=== PATIENT | male | born 1930 | race Caucasian/White ===

== ENCOUNTER 2016-09-26 14:56 | Emergency (ER) | payer BC, OTHER ==
[~2016-09-26 14:56] MED LIST: ACET-1256 PO; AMIT10TA6 PO; BISA1SUP4 RE; CLC100 PO; CLR10 PO; CMD5 PO; CMD6 PO; DEXTSYP41 PO; ECRCR TOP; EFFSR150 PO; ERGO1CAP35 PO; FLM4 PO; FRS/40 PO; GEMF600T3 PO; MAGNSUS5 PO; NTRGSL4 SL; OYST1TAB PO; PRNJ PO; TAPE50TA5 PO; TRAM-10 PO
[2016-09-26 15:02] VITALS: TEMP 37.2; O2SAT 96
--- NOTE | 2016-09-26 15:15 | EMERGENCY ROOM VISIT NOTE ---
History Report prepared by Reyes: Malina Kennedy Under the Supervision of: Dr. José Hayes M.D. First contact with patient: 14:59 Chief Complaint: FOOD BOLUS Stated Complaint: FOOD BOLUS History of Present Illness The patient is a 86 year old male who presents to the Emergency Room with complaints of choking episode occurring 2 and a half hours prior to arrival. The patient arrived to the ED via EMS from [facility]. They report that he was eating lunch when he began to have a choking episode or an allergic reaction. He appeared to have a food bolus. At this time the patient reports no pain. No vomiting episodes were reported. This HPI is limited secondary to dementia. Source of History: patient, EMS Onset: 2 1/2 hours CREDIT CASHIER Position: throat Quality: other (food bolus) Timing: resolved Note: The patient reports no pain at this time, no vomiting. Patient did have choking episode. Review of Systems ROS in unobtainable secondary to dementia. Past Medical & Surgical Medical Problems: (1) Atrial Fibrillation (2) Dementia, Unspecified, Without Behavioral Disturbance (3) Diverticulosis Colon (W/O Ment Of Hemorrhage) (4) Hyperplasia Of Prostate Nos (5) Hypertension Nos (6) Osteoarthros Nos-Unspec Family History Unobtainable Social History Smoking Status: Never Smoker Alcohol Use: none Housing Status: assisted living Occupation Status: retired Current/Historical Medications Scheduled Acetaminophen (Tylenol), 500 MG PO Q6HR PRN Amitriptyline Hcl (Elavil), 10 MG PO HS Bisacodyl (Bisacodyl Laxative), 1 SUPP RE PRN Docusate Sodium (Colace *), 100 MG PO Q12HR PRN Ergocalciferol (Vitamin D Cap), 1 TAB PO WK Eucerin (Eucerin *), 1 APPLN TOP BID Furosemide (Lasix), 40 MG PO BID Gemfibrozil (Lopid), 600 MG PO BID Guaifenesin/Dextromethorphan (Robitussin-Dm Syrup), 5 ML PO Q4HR PRN Loratadine (Claritin), 10 MG PO DAILY Oyster Shell (Oyster Shell Calcium), 500 MG PO BID Tamsulosin Hcl (Flomax *), 0.4 MG PO QAM Tapentadol Hcl (Nucynta), 100 MG PO Q12 Tramadol (Ultram), 50 MG PO Q4HR PRN Venlafaxine Ext Rel (Effexor Extended Rel *), 150 MG PO BID Warfarin Sod (Coumadin), 5 MG PO Q2D Warfarin Sod (Coumadin), 6 MG PO Q2D Scheduled PRN Magnesium Hydroxide (Milk Of Magnesia), 30 ML PO PRN PRN for Constipation Nitroglycerin (Nitrostat), 0.4 MG SL PRN PRN for Chest Pain Prune Juice (Prune Juice ), 8 OZ PO for Constipation Allergies Coded Allergies: Gabapentin (Verified Allergy, Severe, SHORTNESS OF BREATH, 03/23/16) Zolpidem (Unverified Allergy, Mild, ALLERGY, 03/23/16) Codeine (Verified Adverse Reaction, Intermediate, ANXIETY ATTACKS, 03/23/16 ) Physical Exam Vital Signs Date Time Temp Pulse Resp B/P Pulse Ox O2 Delivery O2 Flow Rate FiO2 09/26/16 15:02 96 Room Air 09/26/16 15:02 37.2 78 20 126/76 98 Room Air Physical Exam GENERAL: Patient is in no acute distress. HEENT: No acute trauma, normocephalic atraumatic, mucous membranes moist, no nasal congestion, no scleral icterus. No posterior pharyngeal swelling or uvula edema. NECK: No stridor, no adenopathy, no meningismus, trachea is midline. LUNGS: Clear to auscultation bilaterally, no wheeze, no rhonchi, breath sounds equal. HEART: Without murmurs gallops or rubs, regular rate and rhythm. ABDOMEN: Soft, nontender, bowel sounds positive, no hernias, no peritonitis. EXTREMITIES: No cyanosis or edema, full range of motion of all the joints without pain or difficulty, no signs for acute trauma. NEUROLOGIC: Moving all extremities, awake, dementia noted. SKIN: No rash, no jaundice, no diaphoresis. Medical Decision & Procedures ER Provider Diagnostic Interpretation: X-ray results as stated below per interpretation by me and the radiologist: SINGLE VIEW CHEST CLINICAL HISTORY: Dyspnea. FINDINGS: An AP, portable, upright chest radiograph is compared to study dated 06/07/2008. Correlation is made with chest CT dated 01/29/2008. The examination is degraded by portable technique and patient rotation. The heart is enlarged and there is atherosclerotic calcification of the thoracic aorta. The pulmonary vasculature is noncongested. There is mild elevation of the right hemidiaphragm. No airspace consolidation, large pleural effusion, or pneumothorax is seen. The skeletal structures are osteopenic. The bony thorax is grossly intact. IMPRESSION: Cardiomegaly with no acute cardiopulmonary abnormality. Electronically signed by: José oSsa M.D. 09/26/2016 3:16 PM Dictated Date/Time: 09/26/2016 3:15 PM ECG Indication: other (food bolus/choking) Rate (beats per minute): 78 Rhythm: normal sinus Findings: nonspecific-ST abn, no acute ischemic change ED Course 1500: The patient was evaluated in room C6. A complete history and physical exam was performed. 1504: The patient drank a half a glass of water with no difficulty. 1557: I reevaluated the patient. 1559: Reevaluated the patient. Discussed results and discharge instructions: he verbalized understanding and agreement. The patient is ready for discharge. Medical Decision The patient is a 86 year old male who presents to the ED with complaints of food bolus. Differential diagnoses considered include food bolus, acute allergic reaction, choking episode, cardiac ischemia, pneumonia. The patient presents for what sounds like an esophageal food bolus which spontaneously passed. He had difficulty swallowing while eating. There was concern for possible allergic reaction as well. On exam, the patient has no complaints, he is watching television. There is no rash, he has no uvular or pharyngeal edema. He drank half a glass of water without difficulty. No regurgitation of the liquid. His chest x-ray shows clear lungs, there is no mediastinal widening or pneumonia. EKG shows a sinus rhythm, there is no acute ischemia. The patient is without complaints and doing well. I cannot really get much history from him as he has dementia. The history was obtained from other staff members. At this point, the patient appears stable for discharge. Impression Primary Impression: Difficulty swallowing Scribe Attestation The scribe's documentation has been prepared under my direction and personally reviewed by me in its entirety. I confirm that the note above accurately reflects all work, treatment, procedures, and medical decision making performed by me. Departure Information Dispostion Home / Self-Care Referrals [facility] (PCP) Forms HOME CARE DOCUMENTATION FORM, IMPORTANT VISIT INFORMATION Patient Instructions My [facility] Additional Instructions chest film and ECG today were ok patient can drink water without difficulty patient may have had an esophageal food bolus that passed spontaneously
--- NOTE | 2016-09-26 15:18 | DIAGNOSTIC IMAGING REPORT ---
SINGLE VIEW CHEST CLINICAL HISTORY: Dyspnea. FINDINGS: An AP, portable, upright chest radiograph is compared to study dated 06/07/2008. Correlation is made with chest CT dated 01/29/2008. The examination is degraded by portable technique and patient rotation. The heart is enlarged and there is atherosclerotic calcification of the thoracic aorta. The pulmonary vasculature is noncongested. There is mild elevation of the right hemidiaphragm. No airspace consolidation, large pleural effusion, or pneumothorax is seen. The skeletal structures are osteopenic. The bony thorax is grossly intact. IMPRESSION: Cardiomegaly with no acute cardiopulmonary abnormality. Electronically signed by: José Sosa M.D. 09/26/2016 3:16 PM Dictated Date/Time: 09/26/2016 3:15 PM
[2016-09-26] MEDS ORDERED: LSX20 PO (16:34)
[2016-09-26] MEDS ORDERED: CHOL200027 PO (16:34)
[2016-09-26] MEDS ORDERED: XRL15 PO (16:34)
[2016-09-26] MEDS ORDERED: POTA10CA28 PO (16:34)
[2016-09-26] MEDS ORDERED: FLUO40CA8 PO (16:34)
[2016-09-26] MEDS ORDERED: MOMLX PO (16:34)
[2016-09-26] MEDS ORDERED: FLM4 PO (16:34)
[2016-09-26 18:35] VITALS: BP 125/69; PULSE 88; O2SAT 100
== END 2016-09-26 18:39 | disposition home or self-care (01) ==
LOC: EDBD 14:56 → C.EDC 14:57
DX: R13.10 Dysphagia, unspecified (principal); I48.91 Unspecified atrial fibrillation; F03.90 Unspecified dementia, unspecified severity, without behavioral disturbance, psychotic disturbance, mood disturbance, and anxiety; I10 Essential (primary) hypertension; Z79.01 Long term (current) use of anticoagulants

== ENCOUNTER → 2016-12-19 | Outpatient (CLI) | payer BC, OTHER ==
[~2016-12-19] MED LIST changes: +CHOL1000 PO; +CHOL200027 PO; -CLC100 PO; -CLR10 PO; -CMD5 PO; -CMD6 PO; -DEXTSYP41 PO; -ECRCR TOP; -EFFSR150 PO; -ERGO1CAP35 PO; +FLUO40CA8 PO; -FRS/40 PO; +LSX20 PO; -MAGNSUS5 PO; +MOMLX PO; -OYST1TAB PO; +POTA10CA28 PO; +SRQ25 PO; +TAPE1TAB10 PO; -TRAM-10 PO; +XRL15 PO
[2016-12-19 08:32] LABS: BASO % 0.9 %; BASO ABS # 0.04 K/uL (0-0.2); COMPLETE YES; EOS % 7.1 %; HEMATOCRIT 31.5 % (42-52); IG% 0.5 %; LYMPH % 29.7 %; LYMPH ABS # 1.29 K/uL (1.2-3.4); MEAN CELL VOLUME 90.3 fL (80-100); MEAN CORPUSCULAR HEMOGLOBIN 30.7 pg (25-34); MEAN PLATELET VOLUME 9.7 fL (7.4-10.4); MONO % 16.8 %; PLATELET COUNT 246 K/uL (130-400); RED BLOOD COUNT 3.49 M/uL (4.7-6.1); WHITE BLOOD COUNT 4.34 K/uL (4.8-10.8)
[2016-12-19 08:43] LABS: BLOOD UREA NITROGEN 38 mg/dl (7-18); BUN/CREATININE RATIO 21.3 (10-20); CARBON DIOXIDE 24 mmol/L (21-32); CHLORIDE 107 mmol/L (98-107); GLUCOSE 133 mg/dl (70-99); POTASSIUM 3.9 mmol/L (3.5-5.1); SODIUM 140 mmol/L (136-145)
[2016-12-19 08:49] LABS: CALCIUM 10.1 mg/dl (8.5-10.1)
== END ==
LOC: C.LABCC 08:15
PROVIDERS: ATTEND Internal Medicine
DX: D64.9 Anemia, unspecified (principal); N18.9 Chronic kidney disease, unspecified; F03.90 Unspecified dementia, unspecified severity, without behavioral disturbance, psychotic disturbance, mood disturbance, and anxiety

== ENCOUNTER → 2017-02-16 | Outpatient (CLI) | payer BC, OTHER ==
[2017-02-16 10:30] LABS: ALT/SGPT 14 U/L (12-78); AST/SGOT 13 U/L (15-37); BLOOD UREA NITROGEN 43 mg/dl (7-18); BUN/CREATININE RATIO 23.9 (10-20); CALCIUM 9.3 mg/dl (8.5-10.1); CARBON DIOXIDE 28 mmol/L (21-32); CHLORIDE 105 mmol/L (98-107); GLUCOSE 134 mg/dl (70-99); POTASSIUM 4.4 mmol/L (3.5-5.1); SODIUM 141 mmol/L (136-145)
[2017-02-16 10:33] LABS: ALB/GLOB RATIO 0.9 (0.9-2); ALKALINE PHOSPHATASE 111 U/L (45-117); CHOLESTEROL 214 mg/dl (0-200); HDL CHOLESTEROL 43 mg/dl; LDL CHOLESTEROL CALCULATED 140 mg/dl; TRIGLYCERIDES 156 mg/dl (0-150); VERY LOW DENSITY LIPOPROT CALC 31 mg/dl
--- NOTE | 2017-02-20 11:26 | CODING QUERY MEDICAL NECESSITY ---
SUPPORTING DIAGNOSIS NEEDED A supporting diagnosis is required for the test/procedure performed on this patient in order for us to be reimbursed by the patient's insurance. Please provide a supporting diagnosis for the following test/procedure listed below next to the test name along with your signature. *If there is no additional diagnosis for this patient that would support the following test/procedure please document that below next to the test/procedure. Test(s)/Procedure(s) that require a supporting diagnosis: * VITAMIN D, 25- HYDROXY DIAGNOSIS: Provider Signature: Date: Thank you Nya [employer] Information Management Once completed, please kindly fax back to [phone] For questions please call [phone]
== END ==
LOC: C.LABCC 08:16
PROVIDERS: ATTEND Internal Medicine
DX: N18.2 Chronic kidney disease, stage 2 (mild) (principal); E78.5 Hyperlipidemia, unspecified; E55.9 Vitamin D deficiency, unspecified

== ENCOUNTER → 2017-05-16 | Outpatient (CLI) | payer BC, OTHER ==
[2017-05-16 08:33] LABS: URINE APPEARANCE CLEAR (CLEAR); URINE BILIRUBIN NEG (NEG); URINE COLOR YELLOW; URINE NITRITE NEG (NEG); URINE PH 5.5 (4.5-7.5); URINE SPECIFIC GRAVITY 1.017 (1.000-1.030); UROBILINOGEN NEG (NEG); ZZUR CULT IF INDIC CLEAN CATCH NO
[2017-05-16 08:35] LABS: MANUAL MICROSCOPIC REQUIRED? NO; REVIEW REQ? YES
== END ==
LOC: C.LABCC 10:22
PROVIDERS: ATTEND Internal Medicine
DX: R41.82 Altered mental status, unspecified (principal)

== ENCOUNTER 2017-05-19 11:43 | Inpatient (IN) | payer BC, OTHER ==
[~2017-05-19] VITALS: Ht 172.7 cm; Wt 74.0 kg
[~2017-05-19 11:43] MED LIST changes: -CHOL1000 PO; -SRQ25 PO; -TAPE1TAB10 PO
[2017-05-19] MEDS ORDERED: SODIUM CHLORIDE 0.9% 1000ML 1,000 ML IV STA (12:12)
[2017-05-19] MEDS ORDERED: TAPE1TAB10 PO (12:28)
[2017-05-19 12:40] LABS: BASO % 0.2 %; BASO ABS # 0.01 K/uL (0-0.2); COMPLETE YES; EOS % 1.5 %; HEMATOCRIT 31.5 % (42-52); IG% 0.3 %; LYMPH % 13.1 %; LYMPH ABS # 0.86 K/uL (1.2-3.4); MEAN CELL VOLUME 90.5 fL (80-100); MEAN CORPUSCULAR HEMOGLOBIN 31.3 pg (25-34); MEAN CORPUSCULAR HGB CONC 34.6 g/dl (32-36); MEAN PLATELET VOLUME 9.9 fL (7.4-10.4); NEUT % 75.9 %; PLATELET COUNT 292 K/uL (130-400); RED BLOOD COUNT 3.48 M/uL (4.7-6.1); WHITE BLOOD COUNT 6.56 K/uL (4.8-10.8)
[2017-05-19 12:44] LABS: INR 1.1 (0.9-1.1); PARTIAL THROMBOPLASTIN RATIO 1.2; PROTHROMBIN TIME (PATIENT) 12.3 SECONDS (9.0-12.0)
[2017-05-19 12:54] LABS: BUN/CREATININE RATIO 23.9 (10-20); CALCIUM 9.8 mg/dl (8.5-10.1); CREATININE 1.9 mg/dl (0.60-1.40); POTASSIUM 3.7 mmol/L (3.5-5.1)
--- NOTE | 2017-05-19 13:34 | DIAGNOSTIC IMAGING REPORT ---
HEAD WITHOUT CONTRAST (CT) CLINICAL HISTORY: 87 years-old Male presenting with EVALUATE FOR TRAUMA/INJURY. TECHNIQUE: Multidetector CT imaging of the head was performed without the use of intravenous contrast. IV contrast: None. A dose lowering technique was used consistent with the principles of ALARA (as low as reasonably achievable). COMPARISON: . CT DOSE (mGy.cm): The estimated cumulative dose is 982.[address] cervical spine. FINDINGS: Skid Man topogram: Unremarkable. Proportional ventricular and sulcal prominence, likely age-related parenchymal volume loss. Periventricular and subcortical white matter hypoattenuation, nonspecific but likely indicative of chronic small vessel ischemic change. No mass effect or midline shift. No hemorrhage or acute territorial infarct. No extra-axial fluid collection. Paranasal sinuses and mastoid air cells clear. Calvarium intact. IMPRESSION: 1. No acute intracranial pathology. Electronically signed by: Roman Rubio M.D. 05/19/2017 1:33 PM Dictated Date/Time: 05/19/2017 1:31 PM
--- NOTE | 2017-05-19 13:35 | DIAGNOSTIC IMAGING REPORT ---
CT OF THE CERVICAL SPINE CLINICAL HISTORY: Neck pain status post trauma COMPARISON STUDY: April 27, 2014 CT DOSE: 982.26 mGy.cm TECHNIQUE: CT scan of the cervical spine was performed from the skull base to the thoracic inlet. Images are reviewed in the axial, sagittal, and coronal planes. IV contrast was not administered for this examination. A dose lowering technique was utilized adhering to the principles of ALARA. FINDINGS: The visualized portions of the lung apices reveal no evidence of pneumothorax. The prevertebral soft tissues are normal. No fractures or subluxations are visualized. There are advanced multilevel degenerative changes. Mild anterolisthesis of C3 on C4 is felt to be arthritic. There is mild multilevel spinal stenosis. There is multilevel ankylosis. There is fusion of the posterior elements at the C3 through 5 levels. IMPRESSION: No evidence of acute fracture or traumatic subluxation. Electronically signed by: Axel Kang M.D. 05/19/2017 1:34 PM Dictated Date/Time: 05/19/2017 1:31 PM
--- NOTE | 2017-05-19 13:37 | DIAGNOSTIC IMAGING REPORT ---
CHEST ONE VIEW PORTABLE CLINICAL HISTORY: EVALUATE FOR TRAUMA/INJURY pain. Trauma. COMPARISON STUDY: 09/26/2016 FINDINGS: The bones soft tissues and hemidiaphragms are normal. The cardiomediastinal silhouette is normal. The lungs are clear. The pulmonary vasculature is normal. IMPRESSION: Negative chest. The above report was generated using voice recognition software. It may contain grammatical, syntax or spelling errors. Electronically signed by: Maximiliano Barcenas M.D. 05/19/2017 1:36 PM Dictated Date/Time: 05/19/2017 1:36 PM
--- NOTE | 2017-05-19 14:19 | DIAGNOSTIC IMAGING REPORT ---
LEFT PELVIS/UNILATERAL HIP 2-3VIEWS CLINICAL HISTORY: L hip pain . Fall. COMPARISON STUDY: None. FINDINGS: There is a left femoral neck fracture with the distal fragment demonstrates mild superior displacement. No dislocation of the left femoral head. The visualized pelvic bones are intact. No fracture or dislocation within the right hip. The bones are osteopenic. IMPRESSION: Left femoral neck fracture. Electronically signed by: Jenaro Hodge M.D. 05/19/2017 2:18 PM Dictated Date/Time: 05/19/2017 2:17 PM
[2017-05-19] MEDS ORDERED: BISACODYL 10 MG SUPP PR PRN (14:45)
[2017-05-19] MEDS ORDERED: ONDANSETRON INJ 2 MG/ML 2 ML VIAL IV PRN (14:45)
[2017-05-19] MEDS ORDERED: NALOXONE HCL 0.4 MG/1 ML VIAL/CARP IV PRN (14:45)
[2017-05-19] MEDS ORDERED: SOD PHOSPHATE/SOD BIPHOSPHATE ENEMA 132 ML BTL PR PRN (14:45)
[2017-05-19] MEDS ORDERED: POLYETHYLENE (MIRALAX) 17 GM PACK PO PRN (14:45)
[2017-05-19] MEDS ORDERED: MAGNESIUM HYDROXIDE SUSP 30 ML UDC PO PRN (14:45)
[2017-05-19] MEDS ORDERED: NITROGLYCERIN 0.4 MG SL PER TAB CHARGE SL PRN (14:45)
--- NOTE | 2017-05-19 15:09 | DIAGNOSTIC IMAGING REPORT ---
LEFT TIBIA/FIBULA 2 VIEWS ROUTINE, LEFT FOOT MIN 3 VIEWS ROUTINE CLINICAL HISTORY: Left lower leg and left foot pain. Fall. COMPARISON STUDY: None. FINDINGS: Diffuse muscular atrophy. The bones are osteopenic. No fracture dislocation within the tibia or fibula. Spiral fracture the neck of the fifth metacarpal. This is likely acute. There is soft tissue swelling at the fifth MTP joint. The Lisfranc joint is intact. Mild degenerative changes within the toes. Plantar and posterior calcaneal spurs. IMPRESSION: 1. No acute fracture or dislocation within the left tibia or fibula. 2. Spiral fracture at the neck of the fifth metacarpal. This is likely acute given the adjacent soft tissue swelling. Clinical correlation recommended to confirm pain at this location. Electronically signed by: Jenaro Hodge M.D. 05/19/2017 3:08 PM Dictated Date/Time: 05/19/2017 3:00 PM
--- NOTE | 2017-05-19 15:20 | History and Physical ---
History & Physical Date & Time of Service: May 19, 2017 at 14:38 Chief Complaint: L Femur Fracture Primary Care Physician: Cynthia Leyva History of Present Illness Source: patient This is a 87 yo M with PMHx of atrial fibrillation on xarelto, clotting disorder , hx of venous thromboembolism, hypertension, hyperlipidemia, dementia, BPH, osteoarthritis and osteopenia who presents with new onset left hip fracture from [facility]. The patient was found yesterday by nursing staff in the mens restroom, with a 1 inch laceration on the left side of his neck. He did not remember falling and denies any trauma to the head. When asked why he didn' t use his own room restroom he states he did not remember it was there. The patient currently rates his pain as a 5-6 out of 10, and states that he feels fairly well. The patient denies any numbness or tingling to his feet. During my interview with the patient he asked me who I was 3 different times. Here in the ER x-ray confirms left femoral neck fracture. Other labs are WNL. EKG is in NSR. Past Medical/Surgical History Medical Problems: (1) Atrial Fibrillation Status: Chronic (2) Dementia, Unspecified, Without Behavioral Disturbance Status: Chronic (3) Diverticulosis Colon (W/O Ment Of Hemorrhage) Status: Chronic (4) Hyperplasia Of Prostate Nos Status: Chronic (5) Hypertension Nos Status: Chronic (6) Osteoarthros Nos-Unspec Status: Chronic Clotting disorder History of venous thromboembolism Family History Unobtainable Social History Smoking Status: Never Smoker Housing status: [facility]p Occupational Status: retired Immunizations History of Influenza Vaccine: No Influenza Vaccine Date: Jun 11, 2008 History of Tetanus Vaccine?: No History of Pneumococcal: No History of Hepatitis B Vaccine: No Multi-Drug Resistant Organisms History of MDRO: No Allergies Coded Allergies: Gabapentin (Verified Allergy, Severe, SHORTNESS OF BREATH, 05/19/17) Zolpidem (Unverified Allergy, Mild, ALLERGY, 05/19/17) Codeine (Verified Adverse Reaction, Intermediate, ANXIETY ATTACKS, 05/19/17 ) Home Medications Scheduled Acetaminophen (Tylenol), 500 MG PO Q6HR PRN Amitriptyline Hcl (Elavil), 10 MG PO HS Cholecalciferol (Vitamin D-3), 2,000 UNITS PO DAILY Fluoxetine (Prozac), 40 MG PO QAM Furosemide (Furosemide), 20 MG PO QAM Gemfibrozil (Lopid), 600 MG PO BID Potassium Chloride (Micro-K Ext Rel), 20 MEQ PO DAILY Rivaroxaban (Xarelto), 15 MG PO QAM Tamsulosin HCl (Tamsulosin HCl), 0.4 MG PO QAM Tapentadol Hcl (Nucynta Er), 100 MG PO Q12 Scheduled PRN Nitroglycerin (Nitrostat), 0.4 MG SL PRN PRN for Chest Pain Review of Systems Constitutional: No fever, sweats or chills Eyes: No diplopia, no worsening or blurred vision ENT: normal hearing, no trouble swallowing Respiratory: No cough, sputum, dyspnea at rest or on exertion Cardiovascular: No chest pain, tightness or palpitations Abdomen: No pain, nausea, vomiting, diarrhea or constipation Musculoskeletal: + left distal thigh pain, No calf pain or swelling Neurologic: + dementia, short-term memory loss, not oriented. No weakness, numbness/tingling, or balance problems Skin: No rash or itch Physical Exam Vital Signs Date Time Temp Pulse Resp B/P (MAP) Pulse Ox O2 Delivery O2 Flow Rate FiO2 05/19/17 13:52 81 147/78 96 Room Air 05/19/17 12:23 83 20 125/74 95 Room Air 05/19/17 12:17 94 Room Air 05/19/17 12:17 Room Air 05/19/17 12:09 37.2 86 17 125/78 94 Room Air 05/19/17 11:56 87 General: awake, alert, no apparent distress Head: Normocephalic, atraumatic, + left lateral neck laceration ENT: PERRL, EOMI, no pharyngeal exudate, mucous membranes moist Chest: Clear to auscultation, on room air, no adventitious breath sounds Cardiac: Regular rhythm, + tachycardic, no murmur, no JVD, normal peripheral pulses, good capillary refill Abdominal: NABS x 4 quadrants, soft, nontender to palpation, no rebound, guarding or tenderness Extremities: L leg flexed and internally rotated, + ecchymosis over the dorsal aspect of the left foot. Right LLE normal inspection, no peripheral edema or erythema, calfs nontender to palpation Psych: Normal mood and affect Neuro: Disoriented 3, speech is clear, no peripheral sensory deficits Diagnostics Laboratory Results Results Past 24 Hours Test 05/19/17 11:21 05/19/17 12:23 Range/Units White Blood Count 6.56 4.8-10.8 K/uL Red Blood Count 3.48 4.7-6.1 M/uL Hemoglobin 10.9 14.0-18.0 g/dL Hematocrit 31.5 42-52 % Mean Corpuscular Volume 90.5 80-100 fL Mean Corpuscular Hemoglobin 31.3 25-34 pg Mean Corpuscular Hemoglobin Concent 34.6 32-36 g/dl Platelet Count 292 130-400 K/uL Mean Platelet Volume 9.9 7.4-10.4 fL Neutrophils (%) (Auto) 75.9 % Lymphocytes (%) (Auto) 13.1 % Monocytes (%) (Auto) 9.0 % Eosinophils (%) (Auto) 1.5 % Basophils (%) (Auto) 0.2 % Neutrophils # (Auto) 4.98 1.4-6.5 K/uL Lymphocytes # (Auto) 0.86 1.2-3.4 K/uL Monocytes # (Auto) 0.59 0.11-0.59 K/uL Eosinophils # (Auto) 0.10 0-0.5 K/uL Basophils # (Auto) 0.01 0-0.2 K/uL RDW Standard Deviation 43.1 36.4-46.3 fL RDW Coefficient of Variation 13.2 11.5-14.5 % Immature Granulocyte % (Auto) 0.3 % Immature Granulocyte # (Auto) 0.02 0.00-0.02 K/uL Prothrombin Time 12.3 9.0-12.0 SECONDS Prothromb Time International Ratio 1.1 0.9-1.1 Activated Partial Thromboplast Time 30.1 21.0-31.0 SECONDS Partial Thromboplastin Ratio 1.2 Sodium Level 136 136-145 mmol/L Potassium Level 3.7 3.5-5.1 mmol/L Chloride Level 103 98-107 mmol/L Carbon Dioxide Level 23 21-32 mmol/L Anion Gap 10.0 3-11 mmol/L Blood Urea Nitrogen 45 7-18 mg/dl Creatinine 1.90 0.60-1.40 mg/dl Est Creatinine Clear Calc Drug Dose 27.0 ml/min Estimated GFR () 36.2 Estimated GFR (Non- 31.2 BUN/Creatinine Ratio 23.9 10-20 Random Glucose 126 70-99 mg/dl Calcium Level 9.8 8.5-10.1 mg/dl Total Bilirubin 0.9 0.2-1 mg/dl Direct Bilirubin 0.5 0-0.2 mg/dl Aspartate Amino Transf (AST/SGOT) 15 15-37 U/L Alanine Aminotransferase (ALT/SGPT) 17 12-78 U/L Alkaline Phosphatase 96 45-117 U/L Total Protein 8.1 6.4-8.2 gm/dl Albumin 3.5 3.4-5.0 gm/dl Bedside Glucose 131 70-99 mg/dl Diagnostic Radiology LEFT PELVIS/UNILATERAL HIP 2-3VIEWS CLINICAL HISTORY: L hip pain . Fall. COMPARISON STUDY: None. FINDINGS: There is a left femoral neck fracture with the distal fragment demonstrates mild superior displacement. No dislocation of the left femoral head. The visualized pelvic bones are intact. No fracture or dislocation within the right hip. The bones are osteopenic. IMPRESSION: Left femoral neck fracture. Electronically signed by: Jenaro Hodge M.D. 05/19/2017 2:18 PM Dictated Date/Time: 05/19/2017 2:17 PM The status of this report is Signed. HEAD WITHOUT CONTRAST (CT) CLINICAL HISTORY: 87 years-old Male presenting with EVALUATE FOR TRAUMA/INJURY. TECHNIQUE: Multidetector CT imaging of the head was performed without the use of intravenous contrast. IV contrast: None. A dose lowering technique was used consistent with the principles of ALARA (as low as reasonably achievable). COMPARISON: . CT DOSE (mGy.cm): The estimated cumulative dose is 982.[address] cervical spine. FINDINGS: Spoilage Worker topogram: Unremarkable. Proportional ventricular and sulcal prominence, likely age-related parenchymal volume loss. Periventricular and subcortical white matter hypoattenuation, nonspecific but likely indicative of chronic small vessel ischemic change. No mass effect or midline shift. No hemorrhage or acute territorial infarct. No extra-axial fluid collection. Paranasal sinuses and mastoid air cells clear. Calvarium intact. IMPRESSION: 1. No acute intracranial pathology. Electronically signed by: Roman Rubio M.D. 05/19/2017 1:33 PM Dictated Date/Time: 05/19/2017 1:31 PM The status of this report is Signed. CHEST ONE VIEW PORTABLE CLINICAL HISTORY: EVALUATE FOR TRAUMA/INJURY pain. Trauma. COMPARISON STUDY: 09/26/2016 FINDINGS: The bones soft tissues and hemidiaphragms are normal. The cardiomediastinal silhouette is normal. The lungs are clear. The pulmonary vasculature is normal. IMPRESSION: Negative chest. The above report was generated using voice recognition software. It may contain grammatical, syntax or spelling errors. Electronically signed by: Maximiliano Barcenas M.D. 05/19/2017 1:36 PM Dictated Date/Time: 05/19/2017 1:36 PM The status of this report is Signed. CT OF THE CERVICAL SPINE CLINICAL HISTORY: Neck pain status post trauma COMPARISON STUDY: April 27, 2014 CT DOSE: 982.26 mGy.cm TECHNIQUE: CT scan of the cervical spine was performed from the skull base to the thoracic inlet. Images are reviewed in the axial, sagittal, and coronal planes. IV contrast was not administered for this examination. A dose lowering technique was utilized adhering to the principles of ALARA. FINDINGS: The visualized portions of the lung apices reveal no evidence of pneumothorax. The prevertebral soft tissues are normal. No fractures or subluxations are visualized. There are advanced multilevel degenerative changes. Mild anterolisthesis of C3 on C4 is felt to be arthritic. There is mild multilevel spinal stenosis. There is multilevel ankylosis. There is fusion of the posterior elements at the C3 through 5 levels. IMPRESSION: No evidence of acute fracture or traumatic subluxation. Electronically signed by: Axel Kang M.D. 05/19/2017 1:34 PM Dictated Date/Time: 05/19/2017 1:31 PM The status of this report is Signed. EKG Vent. rate 85 BPM CA interval 160 ms QRS duration 94 ms QT/QTc 378/449 ms P-R-T axes 58 8 47 Normal sinus rhythm Normal ECG When compared with ECG of 26-SEP-2016 15:17, No significant change was found Confirmed by JEFF TRIANA ([id number]) on 05/19/2017 12:23:59 PM Impression Assessment and Plan This is a 87 yo M with PMHx of atrial fibrillation on xarelto, clotting disorder , hx of venous thromboembolism, hypertension, hyperlipidemia, dementia, BPH, osteoarthritis and osteopenia who presents with a left hip fracture from [facility]. Hip fracture - Admit to telemetry - Left femoral neck fracture as reviewed on hip/pelvis x-ray - Orthopedics consulted, Dr. He - We will check a vitamin D level on the patient - Chest x-ray reviewed without any acute processes for preop clearance - EKG reviewed and shows no acute abnormalities, NSR, no ST-T wave inversions or signs of ischemia - We will order Tylenol [id number] for pain, we'll continue his home Nucynta 100 mg Q12h, patient has an allergy to codeine - Holding Xarelto, last dose was received this morning - Allow diet and make NPO after midnight in case of surgical procedure. CKD stage III-IV - Cr. elevated at 1.9, but appears to be at baseline Chronic Atrial fibrillation - Currently in normal sinus rhythm - Holding xarelto Clotting disorder Hx of VTE - PPx with teds, scds, heparin sub q HTN - Holding lasix for now, can resume tomorrow morning if no plans for surgical intervention tomorrow. - BP stable Dementia - Stable Mood disorder - Continue prozac 40 mg daily BPH - Continue Flomax DVT ppx: Teds, scds, heparin sub q CODE STATUS: FULL Disposition: From [facility], to assist with discharge planning, discharge when medically stable Level of Care Telemetry Resuscitation Status FULL RESUSCITATION VTE Prophylaxis Risk Level: Low Given or contraindicated: Unfractionated heparin SQ, T.E.D. Stockings, SCD's Social Service Consult Lives in Personal Care
[2017-05-19 15:57] LABS: MANUAL MICROSCOPIC REQUIRED? NO; REVIEW REQ? NO; URINE APPEARANCE CLEAR (CLEAR); URINE BILIRUBIN NEG (NEG); URINE COLOR YELLOW; URINE EPITHELIAL CELL AUTO 0-5 /lpf (0-5); URINE NITRITE NEG (NEG); URINE SPECIFIC GRAVITY 1.016 (1.000-1.030); UROBILINOGEN NEG (NEG)
[2017-05-19 16:13] LABS: ZZURINE CULT IF INDIC CATH NO
[2017-05-19 17:20] VITALS: BP 150/78; PULSE 87; TEMP 36.5; O2SAT 93; Ht 172.7 cm; Wt 74.0 kg
--- NOTE | 2017-05-19 18:29 | EMERGENCY ROOM VISIT NOTE ---
History Report prepared by Reyes: Dior Dugan Under the Supervision of: Dr. Hamzah Singh D.O. First contact with patient: 12:05 Chief Complaint: FALL Stated Complaint: L FEMUR FRACTURE History of Present Illness The patient is an 87 year old male who presents to the Emergency Room with complaints of a fall 4 days ago. The patient presents to the ED from [facility] by EMS. He was given morphine and Zofran in route. He fell while getting out of the bathroom 4 days ago. The fall was witnessed by staff. He had an abrasion to the neck which was healing. Yesterday, they took an X-ray of his left leg and found a left subcapital femoral neck fracture. He was sent to the ED. He has not been walking since his fall. He denies having any right leg pain. He is on Xarelto which he was not given today. Source of History: patient, nursing staff Onset: 4 days ago Position: other (global) Quality: other (fall) Timing: other (episodic) Note: Pt denies leg pain. Review of Systems See HPI for pertinent positives & negatives. A total of 10 systems reviewed and were otherwise negative. Past Medical & Surgical Medical Problems: (1) Atrial Fibrillation (2) Dementia, Unspecified, Without Behavioral Disturbance (3) Diverticulosis Colon (W/O Ment Of Hemorrhage) (4) Hip fracture, right (5) Hyperplasia Of Prostate Nos (6) Hypertension Nos (7) Osteoarthros Nos-Unspec Family History Unobtainable Social History Smoking Status: Never Smoker Alcohol Use: none Housing Status: assisted living Occupation Status: retired Current/Historical Medications Scheduled Acetaminophen (Tylenol), 500 MG PO Q6HR PRN Amitriptyline Hcl (Elavil), 10 MG PO HS Cholecalciferol (Vitamin D-3), 2,000 UNITS PO DAILY Fluoxetine (Prozac), 40 MG PO QAM Furosemide (Furosemide), 20 MG PO QAM Gemfibrozil (Lopid), 600 MG PO BID Potassium Chloride (Micro-K Ext Rel), 20 MEQ PO DAILY Rivaroxaban (Xarelto), 15 MG PO QAM Tamsulosin HCl (Tamsulosin HCl), 0.4 MG PO QAM Tapentadol Hcl (Nucynta Er), 100 MG PO Q12 Scheduled PRN Nitroglycerin (Nitrostat), 0.4 MG SL PRN PRN for Chest Pain Allergies Coded Allergies: Gabapentin (Verified Allergy, Severe, SHORTNESS OF BREATH, 05/19/17) Zolpidem (Unverified Allergy, Mild, ALLERGY, 05/19/17) Codeine (Verified Adverse Reaction, Intermediate, ANXIETY ATTACKS, 05/19/17 ) Physical Exam Vital Signs Date Time Temp Pulse Resp B/P (MAP) Pulse Ox O2 Delivery O2 Flow Rate FiO2 05/19/17 13:52 81 147/78 96 Room Air 05/19/17 12:23 83 20 125/74 95 Room Air 05/19/17 12:17 94 Room Air 05/19/17 12:17 Room Air 05/19/17 12:09 37.2 86 17 125/78 94 Room Air 05/19/17 11:56 87 Physical Exam GENERAL: laying in bed, disheveled, no acute distress, nontoxic HEAD: normal cephalic, atraumatic EYE EXAM: normal conjunctiva, PERRL and EOM's grossly intact OROPHARYNX: no exudate, no erythema, lips, buccal mucosa, and tongue normal and mucous membranes are moist NECK: supple, no nuchal rigidity, no adenopathy, non-tender, bruise under chin with a small abrasion which appears to be well healed. CHEST: stable to compression anteriorly and posteriorly LUNGS: clear to auscultation. Normal chest wall mechanics HEART: no murmurs, S1 normal and S2 normal ABDOMEN: abdomen soft, non-tender, normo-active bowel sounds, no masses, no rebound or guarding. PELVIS: stable to compression anteriorly and posteriorly BACK: Back is symmetrical on inspection and there is no deformity, no midline tenderness, no CVA tenderness. UPPER EXTREMITIES: full active and passive range of motion of all joints without tenderness to palpation LOWER EXTREMITIES: bruise on the dorsal aspect of the left foot from digit 5 to digit 2, minimal tenderness to palpation of the left hip and left foot, full active and passive range of motion of all joints in the RLE without tenderness to palpation NEURO EXAM: Awake, alert, oriented to person and place, but not year. cranial nerves II-XII grossly intact, normal speech, no gross weakness of arms, GCS: 14. Medical Decision & Procedures ER Provider Diagnostic Interpretation: Radiology results as stated below per my review and the radiologist's interpretation: LEFT TIBIA/FIBULA 2 VIEWS ROUTINE, LEFT FOOT MIN 3 VIEWS ROUTINE CLINICAL HISTORY: Left lower leg and left foot pain. Fall. COMPARISON STUDY: None. FINDINGS: Diffuse muscular atrophy. The bones are osteopenic. No fracture dislocation within the tibia or fibula. Spiral fracture the neck of the fifth metacarpal. This is likely acute. There is soft tissue swelling at the fifth MTP joint. The Lisfranc joint is intact. Mild degenerative changes within the toes. Plantar and posterior calcaneal spurs. IMPRESSION: 1. No acute fracture or dislocation within the left tibia or fibula. 2. Spiral fracture at the neck of the fifth metacarpal. This is likely acute given the adjacent soft tissue swelling. Clinical correlation recommended to confirm pain at this location. Electronically signed by: Jenaro Hodge M.D. 05/19/2017 3:08 PM Dictated Date/Time: 05/19/2017 3:00 PM CHEST ONE VIEW PORTABLE CLINICAL HISTORY: EVALUATE FOR TRAUMA/INJURY pain. Trauma. COMPARISON STUDY: 09/26/2016 FINDINGS: The bones soft tissues and hemidiaphragms are normal. The cardiomediastinal silhouette is normal. The lungs are clear. The pulmonary vasculature is normal. IMPRESSION: Negative chest. The above report was generated using voice recognition software. It may contain grammatical, syntax or spelling errors. Electronically signed by: Maximiliano Barcenas M.D. 05/19/2017 1:36 PM Dictated Date/Time: 05/19/2017 1:36 PM LEFT PELVIS/UNILATERAL HIP 2-3VIEWS CLINICAL HISTORY: L hip pain . Fall. COMPARISON STUDY: None. FINDINGS: There is a left femoral neck fracture with the distal fragment demonstrates mild superior displacement. No dislocation of the left femoral head. The visualized pelvic bones are intact. No fracture or dislocation within the right hip. The bones are osteopenic. IMPRESSION: Left femoral neck fracture. Electronically signed by: Jenaro Hodge M.D. 05/19/2017 2:18 PM Dictated Date/Time: 05/19/2017 2:17 PM HEAD WITHOUT CONTRAST (CT) CLINICAL HISTORY: 87 years-old Male presenting with EVALUATE FOR TRAUMA/INJURY. TECHNIQUE: Multidetector CT imaging of the head was performed without the use of intravenous contrast. IV contrast: None. A dose lowering technique was used consistent with the principles of ALARA (as low as reasonably achievable). COMPARISON: . CT DOSE (mGy.cm): The estimated cumulative dose is 982.[address] cervical spine. FINDINGS: Edging Machine Catcher topogram: Unremarkable. Proportional ventricular and sulcal prominence, likely age-related parenchymal volume loss. Periventricular and subcortical white matter hypoattenuation, nonspecific but likely indicative of chronic small vessel ischemic change. No mass effect or midline shift. No hemorrhage or acute territorial infarct. No extra-axial fluid collection. Paranasal sinuses and mastoid air cells clear. Calvarium intact. IMPRESSION: 1. No acute intracranial pathology. Electronically signed by: Roman Rubio M.D. 05/19/2017 1:33 PM Dictated Date/Time: 05/19/2017 1:[address] OF THE CERVICAL SPINE CLINICAL HISTORY: Neck pain status post trauma COMPARISON STUDY: April 27, 2014 CT DOSE: 982.26 mGy.cm TECHNIQUE: CT scan of the cervical spine was performed from the skull base to the thoracic inlet. Images are reviewed in the axial, sagittal, and coronal planes. IV contrast was not administered for this examination. A dose lowering technique was utilized adhering to the principles of ALARA. FINDINGS: The visualized portions of the lung apices reveal no evidence of pneumothorax. The prevertebral soft tissues are normal. No fractures or subluxations are visualized. There are advanced multilevel degenerative changes. Mild anterolisthesis of C3 on C4 is felt to be arthritic. There is mild multilevel spinal stenosis. There is multilevel ankylosis. There is fusion of the posterior elements at the C3 through 5 levels. IMPRESSION: No evidence of acute fracture or traumatic subluxation. Electronically signed by: Axel Kang M.D. 05/19/2017 1:34 PM Dictated Date/Time: 05/19/2017 1:31 PM Laboratory Results 05/19/17 11:21 Red Blood Count 3.48, Mean Corpuscular Volume 90.5, Mean Corpuscular Hemoglobin 31.3, Mean Corpuscular Hemoglobin Concent 34.6, Mean Platelet Volume 9.9, Neutrophils (%) (Auto) 75.9, Lymphocytes (%) (Auto) 13.1, Monocytes (%) (Auto) 9.0, Eosinophils (%) (Auto) 1.5, Basophils (%) (Auto) 0.2, Neutrophils # (Auto) 4.98, Lymphocytes # (Auto) 0.86, Monocytes # (Auto) 0.59, Eosinophils # (Auto) 0.10, Basophils # (Auto) 0.01 05/19/17 11:21 Test 05/19/17 11:21 05/19/17 12:23 White Blood Count 6.56 K/uL (4.8-10.8) Red Blood Count 3.48 M/uL (4.7-6.1) Hemoglobin 10.9 g/dL (14.0-18.0) Hematocrit 31.5 % (42-52) Mean Corpuscular Volume 90.5 fL (80-100) Mean Corpuscular Hemoglobin 31.3 pg (25-34) Mean Corpuscular Hemoglobin Concent 34.6 g/dl (32-36) Platelet Count 292 K/uL (130-400) Mean Platelet Volume 9.9 fL (7.4-10.4) Neutrophils (%) (Auto) 75.9 % Lymphocytes (%) (Auto) 13.1 % Monocytes (%) (Auto) 9.0 % Eosinophils (%) (Auto) 1.5 % Basophils (%) (Auto) 0.2 % Neutrophils # (Auto) 4.98 K/uL (1.4-6.5) Lymphocytes # (Auto) 0.86 K/uL (1.2-3.4) Monocytes # (Auto) 0.59 K/uL (0.11-0.59) Eosinophils # (Auto) 0.10 K/uL (0-0.5) Basophils # (Auto) 0.01 K/uL (0-0.2) RDW Standard Deviation 43.1 fL (36.4-46.3) RDW Coefficient of Variation 13.2 % (11.5-14.5) Immature Granulocyte % (Auto) 0.3 % Immature Granulocyte # (Auto) 0.02 K/uL (0.00-0.02) Prothrombin Time 12.3 SECONDS (9.0-12.0) Prothromb Time International Ratio 1.1 (0.9-1.1) Activated Partial Thromboplast Time 30.1 SECONDS (21.0-31.0) Partial Thromboplastin Ratio 1.2 Anion Gap 10.0 mmol/L (3-11) Est Creatinine Clear Calc Drug Dose 27.0 ml/min Estimated GFR () 36.2 Estimated GFR (Non- 31.2 BUN/Creatinine Ratio 23.9 (10-20) Calcium Level 9.8 mg/dl (8.5-10.1) Total Bilirubin 0.9 mg/dl (0.2-1) Direct Bilirubin 0.5 mg/dl (0-0.2) Aspartate Amino Transf (AST/SGOT) 15 U/L (15-37) Alanine Aminotransferase (ALT/SGPT) 17 U/L (12-78) Alkaline Phosphatase 96 U/L (45-117) Total Protein 8.1 gm/dl (6.4-8.2) Albumin 3.5 gm/dl (3.4-5.0) 25-Hydroxy Vitamin D Total 28.1 ng/ml (30-100) Bedside Glucose 131 mg/dl (70-99) Laboratory results per my review. Medications Administered Medications (Trade) Dose Ordered Sig/Mary Route Start Time Stop Time Status Last Admin Dose Admin Sodium Chloride 1,000 ml @ 999 mls/hr Q1H1M STAT IV 05/19/17 12:12 05/19/17 13:12 DC 05/19/17 12:20 999 MLS/HR ECG Indication: other (fall) Rate (beats per minute): 85 Rhythm: sinus rhythm Findings: other (normal axis, normal intervals) ED Course ED COURSE: Vital signs were reviewed and showed normal vitals. The patients medical record was reviewed The above diagnostic studies were performed and reviewed. ED treatments and interventions as stated above. 1206: The patient was evaluated in room B2. A complete history and physical examination was performed. 1212: NSS 1000 ml @ 999 mls/hr IV. 1415: Upon reevaluation, the patient is resting comfortably. I discussed my findings with the patient and he understands and agrees with the treatment plan. Based on the patients age, coexisting illnesses, exam and lab findings the decision to treat as an inpatient was made. The patient remained stable while under my care. The patient will be evaluated for further management. 1433: I reviewed the patient's case with Dr. Corona, [facility] hospitalist. He will evaluate the patient for further management. 1442: I discussed the patient's case with Sascha Rangel PA-C [facility]. He will come evaluate the patient. Medical Decision Differential diagnoses include major intracranial, cervical, spinal, thoracic, abdominal, pelvic and neurologic injury. Fracture, contusion, sprain, strain, laceration, abrasions included as well. Patient is an 87-year-old male who presents to the ER following a fall this past [facility] from the shelter. X-rays done at the shelter today show a possible fracture. Repeat x-rays show left hip fracture. Patient was updated at bedside. Patient is not complaints. He is on a Xa inhibitor because currently CT head and cervical spine were performed. X-rays of the tibia and foot show a fracture of the fifth metatarsal. Patient was updated at bedside. He was admitted to internal medicine. Discussed case with orthopedics as well. Medication Reconcilliation Current Medication List: was personally reviewed by me Blood Pressure Screening Patient's blood pressure: Normal blood pressure Blood pressure disposition: Did not require urgent referral Consults Time Called: 1415 Consulting Physician: Dr. Corona [facility] hospitalist Returned Call: 1430 I reviewed the patient's case with him. He will evaluate the patient for further management. Additional Consults: Time Called: 1415 Consulted Physician: Sascha Rangel PA-C [facility] Returned Call: 1440 Additional Comments: I discussed the patient's case with him. He will come evaluate the patient. Impression Primary Impression: Hip fracture, left Additional Impressions: CKD (chronic kidney disease) Fracture of fifth metatarsal bone Scribe Attestation The scribe's documentation has been prepared under my direction and personally reviewed by me in its entirety. I confirm that the note above accurately reflects all work, treatment, procedures, and medical decision making performed by me. Departure Information Dispostion Being Evaluated By Hospitalist Referrals [facility] (PCP) Patient Instructions My [facility] Problem Qualifiers Primary Impression: Hip fracture, left Encounter type: initial encounter Fracture type: closed Qualified Codes: S72.002A - Fracture of unspecified part of neck of left femur, initial encounter for closed fracture Additional Impressions: CKD (chronic kidney disease) Chronic kidney disease stage: unspecified stage Qualified Codes: N18.9 - Chronic kidney disease, unspecified Fracture of fifth metatarsal bone Encounter type: initial encounter Fracture type: closed
[2017-05-19 19:14] VITALS: BP 125/64; PULSE 85; TEMP 36.7; O2SAT 93
[2017-05-19 20:00] VITALS: O2SAT 93
[2017-05-19] MEDS: AMITRIPTYLINE HCL 10 MG TAB PO SCH (21:26)
[2017-05-19] MEDS: ACETAMINOPHEN 325 MG TAB PO PRN (21:26)
[2017-05-19] MEDS: DOCUSATE SODIUM/SENNA 50/8.6MG TAB PO SCH (21:26)
[2017-05-19] MEDS: GEMFIBROZIL 600 MG TAB PO SCH (21:26)
--- NOTE | 2017-05-19 21:28 | DIAGNOSTIC IMAGING REPORT ---
LEFT FEMUR 2 VIEWS ROUTINE CLINICAL HISTORY: Left hip fracture. COMPARISON: Pelvis and left hip radiographs May 19, 2017 2:12 PM. FINDINGS: A displaced acute left femoral neck fracture is noted. Distal fragment is displaced superiorly. Appearance is similar to study performed earlier today. No additional left femoral fracture is present. There is no left knee joint effusion. Extensive vascular calcification is noted. IMPRESSION: Displaced acute left femoral neck fracture. Electronically signed by: Ky Hutchins M.D. 05/19/2017 9:27 PM Dictated Date/Time: 05/19/2017 9:26 PM
[2017-05-19] MEDS: TAPENTADOL ER 50 MG TABCR PO SCH (21:30)
[2017-05-19] MEDS ORDERED: HYDROmorphone INJ 0.5 MG/0.5 ML SYR IV PRN (22:00)
[2017-05-19] MEDS ORDERED: HEPARIN SOD 5000 UNIT/0.5 ML CARP SQ SCH (22:00)
[2017-05-19] MEDS ORDERED: PHARMACY GLYCEMIC MGMT CONSULT STA (22:27)
[2017-05-20] VITALS (7 sets, daily range): BP systolic 111–147; BP diastolic 69–77; PULSE 75–87; TEMP 36.3–36.9; O2SAT 93–97
[2017-05-20] MEDS ORDERED: CEFAZOLIN 2000 MG/60 ML D5W 60 ML IV SCH (06:00)
[2017-05-20 06:37] LABS: BASO % 0.4 %; BASO ABS # 0.02 K/uL (0-0.2); COMPLETE YES; EOS % 4.8 %; HEMATOCRIT 30.6 % (42-52); IG% 0.2 %; LYMPH % 17.6 %; LYMPH ABS # 0.87 K/uL (1.2-3.4); MEAN CELL VOLUME 91.9 fL (80-100); MEAN CORPUSCULAR HEMOGLOBIN 31.2 pg (25-34); MEAN PLATELET VOLUME 9.3 fL (7.4-10.4); MONO % 12.5 %; NEUT % 64.5 %; PLATELET COUNT 275 K/uL (130-400); RED BLOOD COUNT 3.33 M/uL (4.7-6.1); WHITE BLOOD COUNT 4.95 K/uL (4.8-10.8)
[2017-05-20] MEDS ORDERED: BUPIVACAINE 0.5 % 5 MG/1 ML PF 10ML VIAL ONE (07:04)
[2017-05-20 07:07] LABS: BUN/CREATININE RATIO 22.7 (10-20); CALCIUM 9.7 mg/dl (8.5-10.1); CREATININE 1.7 mg/dl (0.60-1.40); POTASSIUM 3.5 mmol/L (3.5-5.1)
--- NOTE | 2017-05-20 08:37 | ORTHOPEDIC PROGRESS NOTE ---
DATE: 05/20/2017 SUBJECTIVE: The patient is an 87-year-old white male who resides at [facility] who apparently was found in one of the men's restroom after a fall. The patient was confused and was having difficulty ambulating on his left lower extremity. He was brought to the Emergency Room here at [facility] and x-rays were taken and found that he had a displaced femoral neck fracture of the left hip. He was admitted under [facility] service and we have been consulted to take care of his left hip fracture. Currently, the patient is confused and offers no history that can be used. He does state that he is having pain down his left leg. He does not remember falling. I have tried to contact his daughter but there is no answer at this time at either number. PAST MEDICAL HISTORY: Atrial fibrillation on Xarelto, dementia, diverticulosis, BPH, hypertension, history of clotting disorder with history of DVT in the past. PAST SURGICAL HISTORY: Appendectomy, T&A, Knee surgery in the past FAMILY HISTORY: Unobtainable at this time due to patient's confusion. SOCIAL HISTORY: Per chart a nonsmoker who resides at [facility]. MEDICATIONS: Tylenol 500 mg p.o. q. 6 hours p.r.n., Elavil 10 mg p.o. at bedtime, vitamin D3 2000 units p.o. daily, Prozac 40 mg p.o. q.a.m., Lasix 20 mg p.o. q.a.m., gemfibrozil 600 mg p.o. b.i.d., Micro-K extended release 20 mEq p.o. daily, Xarelto 15 mg q.a.m. tamsulosin 0.4 mg p.o. q.a.m., Nucynta extended release 100 mg p.o. q 12 hours, nitroglycerin 0.4 mg sublingually p.r.n. chest pain. ALLERGIES: GABAPENTIN, ZOLPIDEM, AND CODEINE WHICH APPARENTLY THE CODEINE CAUSES INTERMEDIATE ANXIETY ATTACKS. REVIEW OF SYSTEMS: As per admitting history and physical. PHYSICAL EXAMINATION: GENERAL: The patient is a well-developed, well-nourished elderly male who appears younger than his stated age. Currently, he is confused but is alert and awake. VITAL SIGNS: This morning temp 36.7, pulse 87, respirations 19, BP 147/76, pulse ox 97 on room air. EXTREMITIES: On examination of his left hip he has the hip flexed to approximately 90 degrees while lying on his right side in bed. His knee is flexed to approximately 90 degrees as well. He does move his toes and ankle when asked to. However, he does not want to move the left leg at this time. It is difficult to assess the right lower extremity due to the patient being on his right side and he is refusing to turn at all likely due to pain from his fracture. Upper extremities appear to be within normal limits as far as range of motion and he has no apparent pain on palpation of his shoulders, elbows and wrists and no pain in the cervical or neck region and no thoracic or lumbar pain on palpation. The left leg does appear somewhat shorter than the right, but difficult to assess with the patient's positioning. Pulses appear to be equal bilaterally of the upper and lower extremities. There is no gross motor or sensory deficits that I can appreciate at this time. ASSESSMENT: Per x-ray left displaced femoral neck fracture. PLAN: The patient has been on Xarelto and assuming that he took his Xarelto dose on the morning of the we will need to wait 48-72 hours to perform surgery. I discussed the case with several of our physicians and we will plan on waiting at least 48 hours at this time before having the patient undergo bipolar hemiarthroplasty of the left hip. KENNY
[2017-05-20] MEDS: FLUOXETINE HCL 20 MG CAP PO SCH (09:03)
[2017-05-20] MEDS: TAMSULOSIN HCL 0.4 MG CAP PO SCH (09:03)
[2017-05-20] MEDS: CHOLECALCIFEROL 1000 INTER.UNIT TAB PO SCH ×2 (09:03→09:04)
[2017-05-20] MEDS: GEMFIBROZIL 600 MG TAB PO SCH ×2 (09:03→21:18)
[2017-05-20] MEDS: POTASSIUM CHLORIDE 10 MEQ TABCR PO SCH (09:03)
[2017-05-20] MEDS: TAPENTADOL ER 50 MG TABCR PO SCH ×2 (09:06→21:18)
--- NOTE | 2017-05-20 09:21 | Clinical Documentation Query ---
CLINICAL DOCUMENTATION QUERY 87 year old male who presents to the Emergency Room with complaints of a fall 4 days ago and found to have a subcapital femoral neck fracture. Query #1/2 The medical record seems to be conflictual in the definition fo the foot fracture. Radiology as well as Internal medicine has stated this as a left 5th "metacarpal" fracture of foot. Please clearify!! In your clinical opinion is this patient being managed for: ( x ) Left fifth metatarsal spiral fracture of foot. ( ) Not Agree ( ) Other explanation of clinical findings (Please Explain) ( ) Unable to determine (Please Define) ( ) Need to Discuss The medical record reflects the following clinical findings, treatment, and risk factors. Clinical Indicators: See above. left foot local bluish, no obvious swelling, however has tender in palpation. Treatment: Ortho consult. Risk Factors: Fall Query #2/2 87-y/o male with hx of ostoepenia presents with femoral neck fracture from ground level fall. In your clinical opinion is this patient being managed for: ( x ) Osteoporotic Femoral Neck fracture in setting of ground level fall. ( ) Not Agree ( ) Other explanation of clinical findings (Please Explain) ( ) Unable to determine (Please Define) ( ) Need to Discuss The medical record reflects the following clinical findings, treatment, and risk factors. Clinical Indicators: 87 year old, fall going to bathroom Treatment: ortho consult Risk Factors: Age, osteopenia, major long bone fracture in ground level fall. Please clarify and document your clinical opinion in the progress notes and discharge summary. Terms such as "probable", "suspected", "likely", "questionable", "possible", or "still to be ruled out" are acceptable. IF IN AGREEMENT, YOU MUST DOCUMENT ABOVE DIAGNOSTIC STATEMENT IN DAILY PROGRESS NOTES AND DISCHARGE SUMMARY. This document is not part of the patient's record. Thank You, Everett Koehler, NADIA [phone]
--- NOTE | 2017-05-20 12:43 | Hospitalist Progress Note ---
Hospitalist Progress Note Date of Service May 20, 2017. (Maggie Koehler PA-C) Subjective Pt evaluation today including: conversation w/ patient, physical exam, chart review, lab review, review of studies, review of inpatient medication list Patient seen and evaluated. Eating lunch. Report chronic bilateral leg pain mostly in the knees. Denies acute worsening of pain. Does not look in distress. Surgery on hold due to Xarelto which is on hold. Patient is confused/demented at baseline. Verbalizes no complaints or any needs. Constitutional: No fever, No chills Respiratory: No shortness of breath Cardiovascular: No chest pain Abdomen: No pain, No nausea, No vomiting, No diarrhea, No constipation Musculoskeletal: + joint pain (chronic bilateral leg and knee pain) Skin: No rash (Maggie Koehler PA-C) Medications Current Inpatient Medications Medications (Trade) Dose Ordered Sig/Mary Route Start Time Stop Time Status Last Admin Dose Admin Cefazolin Sodium 60 ml @ 120 mls/hr PREOP IV 05/20/17 06:00 05/20/17 18:00 Ondansetron HCl (Zofran Inj) 4 mg Q6H PRN IV 05/19/17 14:45 06/18/17 14:44 Acetaminophen (Tylenol Tab) 650 mg Q6H PRN PO 05/19/17 14:45 06/18/17 14:44 05/19/17 21:26 650 MG Naloxone HCl (Narcan Inj) 0.1 mg PRN PRN IV 05/19/17 14:45 06/18/17 14:44 Senna/Docusate Sodium (Senokot S Tab) 2 tab HS PO 05/19/17 21:00 06/18/17 20:59 05/19/17 21:26 2 TAB Polyethylene (Miralax Powder Packet) 17 gm DAILY PRN PO 05/19/17 14:45 06/18/17 14:44 Magnesium Hydroxide (Milk Of Magnesia Susp) 30 ml DAILY PRN PO 05/19/17 14:45 06/18/17 14:44 Bisacodyl (Dulcolax Supp) 10 mg DAILY PRN [place] 05/19/17 14:45 06/18/17 14:44 Sodium Biphosphate/ Sodium Phosphate (Fleet Enema) 132 ml PRN PRN [place] 05/19/17 14:45 Amitriptyline HCl (Elavil Tab) 10 mg HS PO 05/19/17 21:00 06/18/17 20:59 05/19/17 21:26 10 MG Fluoxetine HCl (Prozac Cap) 40 mg QAM PO 05/20/17 09:00 06/19/17 08:59 05/20/17 09:03 40 MG Gemfibrozil (Lopid Tab) 600 mg BID PO 05/19/17 21:00 06/18/17 20:59 05/20/17 09:03 600 MG Nitroglycerin (Nitrostat Tab) 0.4 mg PRN PRN SL 05/19/17 14:45 06/18/17 14:44 Potassium Chloride (Klor-Con M10) 20 meq DAILY PO 05/20/17 09:00 06/19/17 08:59 05/20/17 09:03 20 MEQ Tamsulosin HCl (Flomax Cap) 0.4 mg QAM PO 05/20/17 09:00 06/19/17 08:59 05/20/17 09:03 0.4 MG Cholecalciferol (Vitamin D Tab) 2,000 inter.unit DAILY PO 05/20/17 09:00 06/19/17 08:59 05/20/17 09:03 2,000 INTER.UNIT Tapentadol (Nucynta Er Tab) 100 mg Q12 PO 05/19/17 21:00 06/18/17 20:59 05/20/17 09:06 100 MG Cholecalciferol (Vitamin D Tab) 1,000 inter.unit QAM PO 05/20/17 09:00 06/19/17 08:59 05/20/17 09:04 1,000 INTER.UNIT Hydromorphone HCl (Dilaudid Inj) 0.25 mg Q30M PRN IV 05/19/17 22:00 06/02/17 21:59 Heparin Sodium (Porcine) (Heparin Sq 5000 Unit/0.5ml) 5,000 unit Q8 SQ 05/20/17 14:00 05/21/17 05:00 05/20/17 13:13 5,000 UNIT Acetaminophen/ Hydrocodone Bitart ([place] 5/325 Tab) 1 tab Q4H PRN PO 05/20/17 13:15 06/03/17 13:14 (Maggie Koehler PA-C) Objective Vital Signs Date Time Temp Pulse Resp B/P (MAP) Pulse Ox O2 Delivery O2 Flow Rate FiO2 05/20/17 11:30 Room Air 05/20/17 11:18 36.7 82 18 129/77 (94) 96 Room Air 05/20/17 08:00 36.9 75 16 137/73 (94) 97 Room Air 05/20/17 08:00 Room Air 05/20/17 04:01 36.7 87 19 147/76 (99) 97 Room Air 05/20/17 04:00 94 Room Air 05/20/17 00:05 93 Room Air 05/19/17 20:00 93 Room Air 05/19/17 19:14 36.7 85 16 125/64 (84) 93 Room Air 05/19/17 17:20 36.5 87 17 150/78 93 Room Air 05/19/17 16:08 85 16 114/71 97 Room Air 05/19/17 15:35 87 18 138/82 98 Room Air 05/19/17 13:52 81 147/78 96 Room Air (Maggie Koehler PA-C) Physical Exam General Appearance: WD/WN, no apparent distress Eyes: sclerae normal ENT: hearing grossly normal Neck: supple, no JVD, trachea midline, + pertinent finding (ecchymosis of L neck without active bleeding) Respiratory/Chest: lungs clear, normal breath sounds, no respiratory distress, no accessory muscle use Cardiovascular: regular rate, rhythm, no gallop, no murmur Abdomen: normal bowel sounds, non tender, soft Extremities: no pedal edema, no calf tenderness, + pertinent finding (motor function intake but reduced in L foot; pulses 2+ ) Neurologic/Psychiatric: alert Skin: normal color, warm/dry (Maggie Koehler PA-C) Laboratory Results Last 24 Hours Test 05/19/17 15:20 05/20/17 06:17 Urine Color YELLOW Urine Appearance CLEAR Urine pH 5.0 Urine Specific [place] 1.016 Urine Protein NEG Urine Glucose (UA) NEG Urine Ketones NEG Urine Occult Blood 1+ Urine Nitrite NEG Urine Bilirubin NEG Urine Urobilinogen NEG Urine Leukocyte Esterase NEG Urine WBC (Auto) 0 /hpf Urine RBC (Auto) 0-4 /hpf Urine Hyaline Casts (Auto) 1-5 /lpf Urine Epithelial Cells (Auto) 0-5 /lpf Urine Bacteria (Auto) NEG White Blood Count 4.95 K/uL Red Blood Count 3.33 M/uL Hemoglobin 10.4 g/dL Hematocrit 30.6 % Mean Corpuscular Volume 91.9 fL Mean Corpuscular Hemoglobin 31.2 pg Mean Corpuscular Hemoglobin Concent 34.0 g/dl Platelet Count 275 K/uL Mean Platelet Volume 9.3 fL Neutrophils (%) (Auto) 64.5 % Lymphocytes (%) (Auto) 17.6 % Monocytes (%) (Auto) 12.5 % Eosinophils (%) (Auto) 4.8 % Basophils (%) (Auto) 0.4 % Neutrophils # (Auto) 3.19 K/uL Lymphocytes # (Auto) 0.87 K/uL Monocytes # (Auto) 0.62 K/uL Eosinophils # (Auto) 0.24 K/uL Basophils # (Auto) 0.02 K/uL RDW Standard Deviation 43.8 fL RDW Coefficient of Variation 13.0 % Immature Granulocyte % (Auto) 0.2 % Immature Granulocyte # (Auto) 0.01 K/uL Sodium Level 138 mmol/L Potassium Level 3.5 mmol/L Chloride Level 106 mmol/L Carbon Dioxide Level 24 mmol/L Anion Gap 8.0 mmol/L Blood Urea Nitrogen 39 mg/dl Creatinine 1.70 mg/dl Est Creatinine Clear Calc Drug Dose 30.2 ml/min Estimated GFR () 41.4 Estimated GFR (Non- 35.7 BUN/Creatinine Ratio 22.7 Random Glucose 121 mg/dl Calcium Level 9.7 mg/dl (Maggie Koehler, PA-C) Assessment and Plan This is a 87 yo M with PMHx of atrial fibrillation on xarelto, clotting disorder , hx of venous thromboembolism, hypertension, hyperlipidemia, dementia, BPH, osteoarthritis and osteopenia who presents with a left hip fracture from [facility]. 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 - Slightly improved to 1.7 - continue to monitor Paroxysmal Atrial Fibrillation: NSR with Rate Control - Xarelto on hold - no rate control medication instituted Hypercoagulopathy with H/O VTE: - SANDRINE/SCDs; SC Heparin HTN: - Continue to hold Lasix Dementia/Mood Disorder: STABLE - Prozac 40 mg daily DVT Prophylaxis: SANDRINE/SCDs; SC Heparin Code Status: FULL RESUSCITATION Disposition: - From [facility] - will need acute PT/OT services - Will place PT/OT consults after surgical repair Continued [facility] stay due to: multiple IV medications needed [facility]charge planning[facility] (Maggie Koehler, PA-C) Reviewed: Pt Seen/Exam by Me (Nya Ravi, ) History Pt has needed frequent redirection per nursing, but has not had complaints. Pt denies fever, SOB, chest pain, abd pain, n/v/c/d, LE pain or swelling. Ate without issue. Called by nursing early this evening for pt being less cooperative and pulling at catheter. Agree with HPI/ROS as noted. (Nya Ravi, ) General Appearance: WD/WN, no apparent distress Respiratory: normal breath sounds, no respiratory distress Cardiovascular: normal peripheral pulses, regular rate, rhythm Gastrointestinal: non tender, soft Extremities: non-tender, no pedal edema Neurologic/Psychiatric: alert (to person, has to be redirected frequently that he is in the hospital and his surgery is tomorrow, asks same questions repeatedly), normal mood/affect Skin Characteristics: normal color, warm/dry (Nya Ravi DO) Assessment/Plan Agree with plan as outlined above Plan for OR tomorrow for L femur fx Osteoporotic fx in the setting of ground level fall Also with R metatarsal fx Seroquel added for likely sundowning and mild aggression Would not give this pt ativan given it will likely only worsen his dementia If ongoing aggression, could try haldol (Nya Ravi, DO)
[2017-05-20] MEDS: HEPARIN SOD 5000 UNIT/0.5 ML CARP SQ SCH ×2 (13:13→21:21)
[2017-05-20] MEDS ORDERED: HYDROCODONE/ACETAMOPHEN 5/325MG TAB PO PRN (13:15)
[2017-05-20] MEDS ORDERED: QUETIAPINE FUMARATE 25 MG TAB PO ONE (16:39)
[2017-05-20] MEDS: ACETAMINOPHEN 325 MG TAB PO PRN (17:37)
--- NOTE | 2017-05-20 18:02 | Orthopedic Progress Note ---
Orthopedic Progress Note Date of Service May 20, 2017. Subjective Additional Notes: Mr Maynard is a 87-year-old male who resides at [facility] who was found in one of the men's restroom after a fall. The patient was confused and was having difficulty ambulating on his left lower extremity. He was brought to the Emergency Room here at [facility] and found to have a displaced femoral neck fracture of the left hip. The patient is confused and is a bad historian. He does state that he is having pain down his left leg. He does not remember falling nor injuring his left hip. I have tried to contact his daughter but there is no answer at this time at either number and a return number was given for her to call. Objective Well-developed, well-nourished elderly male who appears younger than his stated age. AO x 1 to self but not to place or date B/L UE NVSI, full Painless ROM, -TTP, +2 radial pulse, +AIN/PIN/Radial/Ulner nerve RLE NVSI + EHL/FHL/TA/GS SILT grossly, +2 DP pulse, CR< 2 seconds, Full painless ROM. LLE NVSI + EHL/FHL/TA/GS SILT grossly, +2 DP pulse, CR< 2 seconds, Painfull log roll, short and ext rot. Skin intact overlying left hip, no ecchymosis No pain in the cervical or neck region and no thoracic or lumbar pain on palpation. Date Time Temp Pulse Resp B/P (MAP) Pulse Ox O2 Delivery O2 Flow Rate FiO2 05/20/17 11:30 Room Air 05/20/17 11:18 36.7 82 18 129/77 (94) 96 Room Air 05/20/17 08:00 36.9 75 16 137/73 (94) 97 Room Air 05/20/17 08:00 Room Air 05/20/17 04:01 36.7 87 19 147/76 (99) 97 Room Air 05/20/17 04:00 94 Room Air 05/20/17 00:05 93 Room Air 05/19/17 20:00 93 Room Air 05/19/17 19:14 36.7 85 16 125/64 (84) 93 Room Air Laboratory Results 24 Hours: Test 05/20/17 06:17 White Blood Count 4.95 K/uL Red Blood Count 3.33 M/uL Hemoglobin 10.4 g/dL Hematocrit 30.6 % Mean Corpuscular Volume 91.9 fL Mean Corpuscular Hemoglobin 31.2 pg Mean Corpuscular Hemoglobin Concent 34.0 g/dl Platelet Count 275 K/uL Mean Platelet Volume 9.3 fL Neutrophils (%) (Auto) 64.5 % Lymphocytes (%) (Auto) 17.6 % Monocytes (%) (Auto) 12.5 % Eosinophils (%) (Auto) 4.8 % Basophils (%) (Auto) 0.4 % Neutrophils # (Auto) 3.19 K/uL Lymphocytes # (Auto) 0.87 K/uL Monocytes # (Auto) 0.62 K/uL Eosinophils # (Auto) 0.24 K/uL Basophils # (Auto) 0.02 K/uL Additional Notes: XR Pelvis/Left femur/Left tib/fib: Displaced transcervical femoral neck fracture Assessment & Plan Assessment: Left hip femoral neck fracture Plan: I have seen and evaluated the patient personally and have indicated him for a left hip hemiarthroplasty. The patient has been medically optimized per primary medical team for surgery. The plan is to take the patient to the OR on 05/21/17 for a left hip hemiarthroplasty. Due to the patient's mental status he is unable to provide consent at this time. We have tried to call the next of kin without success by both myself and the orthopedic team and left a return number for her. We will continue to reach out to the next of kin Kary Garcia ( daughter) in hopes of obtaining consent to proceed with surgery otherwise we may have to consult with the hospitals protocol for non-consentable patients who have no POA. -NPO after midnight -hold anticoagulation 8 hours before surgery -IV fluids -Pain management -NWB/Bedrest
[2017-05-20] MEDS: QUETIAPINE FUMARATE 25 MG TAB PO SCH (21:18)
[2017-05-20] MEDS: DOCUSATE SODIUM/SENNA 50/8.6MG TAB PO SCH (21:18)
[2017-05-20] MEDS: AMITRIPTYLINE HCL 10 MG TAB PO SCH (21:18)
--- NOTE | 2017-05-21 05:03 | Clinical Documentation Query ---
CLINICAL DOCUMENTATION QUERY 87 year old male who presents to the Emergency Room with complaints of a fall 4 days ago and found to have a subcapital femoral neck fracture. Query #1/2 The medical record seems to be conflictual in the definition fo the foot fracture. Radiology as well as Internal medicine has stated this as a left 5th "metacarpal" fracture of foot. Please clearify!! In your clinical opinion is this patient being managed for: ( x ) Left fifth metatarsal spiral fracture of foot. PER . PLEASE CONTINUE IN YOUR DOCUMENTATION ( ) Not Agree ( ) Other explanation of clinical findings (Please Explain) ( ) Unable to determine (Please Define) ( ) Need to Discuss The medical record reflects the following clinical findings, treatment, and risk factors. Clinical Indicators: See above. left foot local bluish, no obvious swelling, however has tender in palpation. Treatment: Ortho consult. Risk Factors: Fall Query #2/2 87-y/o male with hx of ostoepenia presents with femoral neck fracture from ground level fall. In your clinical opinion is this patient being managed for: ( x) Osteoporotic Femoral Neck fracture in setting of ground level fall. PER . PLEASE CONTINUE IN YOUR DOCUMENTATION ( ) Not Agree ( ) Other explanation of clinical findings (Please Explain) ( ) Unable to determine (Please Define) ( ) Need to Discuss The medical record reflects the following clinical findings, treatment, and risk factors. Clinical Indicators: 87 year old, fall going to bathroom Treatment: ortho consult Risk Factors: Age, osteopenia, major long bone fracture in ground level fall. Please clarify and document your clinical opinion in the progress notes and discharge summary. Terms such as "probable", "suspected", "likely", "questionable", "possible", or "still to be ruled out" are acceptable. IF IN AGREEMENT, YOU MUST DOCUMENT ABOVE DIAGNOSTIC STATEMENT IN DAILY PROGRESS NOTES AND DISCHARGE SUMMARY. This document is not part of the patient's record. Thank You, Everett Koehler, NADIA [phone]
[2017-05-21] MEDS ORDERED: CEFAZOLIN 2000 MG/60 ML D5W 60 ML IV SCH (06:00)
[2017-05-21] MEDS ORDERED: ROPIVACAINE 5MG/ML 30 ML 150 MG, BUPIVACAINE/EPINEPHR 0.5% MPF 30 ML, KETOROLAC TROMETH... INFIL SCH ×7 (06:00)
[2017-05-21 07:20] VITALS: BP 121/78; PULSE 79; TEMP 36.8; O2SAT 98
[2017-05-21] MEDS ORDERED: BUPIVACAINE 0.5 % 5 MG/1 ML PF 10ML VIAL ONE (07:58)
[2017-05-21 08:44] LABS: BASO % 0.8 %; BASO ABS # 0.03 K/uL (0-0.2); COMPLETE YES; EOS % 6.1 %; HEMATOCRIT 30.5 % (42-52); IG% 0.5 %; LYMPH % 24.1 %; LYMPH ABS # 0.95 K/uL (1.2-3.4); MEAN CELL VOLUME 90.2 fL (80-100); MEAN CORPUSCULAR HEMOGLOBIN 30.8 pg (25-34); MEAN CORPUSCULAR HGB CONC 34.1 g/dl (32-36); MEAN PLATELET VOLUME 9.3 fL (7.4-10.4); MONO % 10.9 %; NEUT % 57.6 %; PLATELET COUNT 291 K/uL (130-400); RED BLOOD COUNT 3.38 M/uL (4.7-6.1); WHITE BLOOD COUNT 3.95 K/uL (4.8-10.8)
[2017-05-21] MEDS: GEMFIBROZIL 600 MG TAB PO SCH ×2 (09:00→21:59)
[2017-05-21] MEDS: POTASSIUM CHLORIDE 10 MEQ TABCR PO SCH (09:00)
[2017-05-21] MEDS: TAPENTADOL ER 50 MG TABCR PO SCH ×2 (09:00→21:59)
[2017-05-21] MEDS: FLUOXETINE HCL 20 MG CAP PO SCH (09:00)
[2017-05-21] MEDS: TAMSULOSIN HCL 0.4 MG CAP PO SCH (09:00)
[2017-05-21] MEDS: CHOLECALCIFEROL 1000 INTER.UNIT TAB PO SCH ×2 (09:00)
[2017-05-21 09:18] LABS: BUN/CREATININE RATIO 24.5 (10-20); CALCIUM 10.1 mg/dl (8.5-10.1); CREATININE 1.5 mg/dl (0.60-1.40); POTASSIUM 3.7 mmol/L (3.5-5.1)
[2017-05-21] MEDS ORDERED: MIDAZOLAM HCL 1 MG/ML 2ML VIAL ONE (11:15)
[2017-05-21] MEDS ORDERED: FENTANYL CITRATE INJ 50 MCG/1 ML 2 ML VIAL ONE ×2 (11:15→14:31)
[2017-05-21] MEDS ORDERED: NALOXONE HCL 0.4 MG/1 ML VIAL/CARP IV PRN (11:30)
[2017-05-21] MEDS ORDERED: FENTANYL CITRATE INJ 50 MCG/1 ML 2 ML VIAL IV PRN (11:30)
[2017-05-21] MEDS ORDERED: LABETALOL HCL IV 5 MG/ML 20ML IV PRN (11:30)
[2017-05-21] MEDS ORDERED: HYDROmorphone INJ 2 MG/ML SYR/VIAL IV PRN (11:30)
[2017-05-21] MEDS ORDERED: ONDANSETRON INJ 2 MG/ML 2 ML VIAL IV PRN ×2 (11:30→16:00)
[2017-05-21] MEDS ORDERED: MEPERIDINE HCL 25 MG/ML CARP IV PRN (11:30)
[2017-05-21] MEDS ORDERED: ATROPINE SULFATE 0.1 MG/ML 5ML SYR IV PRN (11:30)
[2017-05-21] MEDS ORDERED: PHENYLEPHRINE 100MCG/ML 5ML SYR IV PRN (11:30)
[2017-05-21] MEDS ORDERED: FLUMAZENIL 0.1 MG/1 ML 10 ML VIAL IV PRN (11:30)
[2017-05-21] MEDS ORDERED: EpHEDrine SULFATE INJ 50 MG/ML AMP IV PRN (11:30)
--- NOTE | 2017-05-21 12:47 | Orthopedic Progress Note ---
Orthopedic Progress Note Date of Service May 21, 2017. Subjective Additional Notes: Patient seen in the pre operative holding area. Resting comfortable. No acute issues, surgically optimized to proceed with surgery, Left hip hemiarthroplasty. We were able to discuss with the POA, the patients ex Clemencia Maynard. The risks and benefits were explained in detail and all questions were answered to satisfaction and she verbally consented for us to proceed with surgery. Objective AO x 1 to self but not to place or date B/L UE NVSI, full Painless ROM, -TTP, +2 radial pulse, +AIN/PIN/Radial/Ulner nerve RLE NVSI + EHL/FHL/TA/GS SILT grossly, +2 DP pulse, CR< 2 seconds, Full painless ROM. LLE NVSI + EHL/FHL/TA/GS SILT grossly, +2 DP pulse, CR< 2 seconds, Painfull log roll, short and ext rot. Skin intact overlying left hip, no ecchymosis No pain in the cervical or neck region and no thoracic or lumbar pain on palpation. Date Time Temp Pulse Resp B/P (MAP) Pulse Ox O2 Delivery O2 Flow Rate FiO2 05/21/17 11:36 36.6 75 18 145/82 (103) 95 Room Air 05/21/17 07:20 36.8 79 18 121/78 (92) 98 Room Air 05/21/17 07:15 Room Air 05/20/17 23:30 Room Air 05/20/17 22:58 36.3 77 17 122/74 (90) 96 Room Air 05/20/17 14:00 Room Air 05/20/17 14:00 36.6 86 14 111/69 (83) 97 Room Air Laboratory Results 24 Hours: Test 05/21/17 08:23 White Blood Count 3.95 K/uL Red Blood Count 3.38 M/uL Hemoglobin 10.4 g/dL Hematocrit 30.5 % Mean Corpuscular Volume 90.2 fL Mean Corpuscular Hemoglobin 30.8 pg Mean Corpuscular Hemoglobin Concent 34.1 g/dl Platelet Count 291 K/uL Mean Platelet Volume 9.3 fL Neutrophils (%) (Auto) 57.6 % Lymphocytes (%) (Auto) 24.1 % Monocytes (%) (Auto) 10.9 % Eosinophils (%) (Auto) 6.1 % Basophils (%) (Auto) 0.8 % Neutrophils # (Auto) 2.28 K/uL Lymphocytes # (Auto) 0.95 K/uL Monocytes # (Auto) 0.43 K/uL Eosinophils # (Auto) 0.24 K/uL Basophils # (Auto) 0.03 K/uL Assessment & Plan Assessment: Left hip femoral neck fracture Plan: I have seen and evaluated the patient personally and have indicated him for a left hip hemiarthroplasty. The patient has been medically optimized per primary medical team for surgery. The plan is to take the patient to the OR today for a left hip hemiarthroplasty. Due to the patient's mental status we obtained consent from his POA Clemencia Maynard, the risk and benefits of surgery as well as no surgery were explained in detail, she consented to proceed with surgery. -NPO -Pre op abx ordered -Type and screen -hold anticoagulation -IV fluids -NWB/Bedrest -site marked -consent signed
--- NOTE | 2017-05-21 12:54 | History & Physical Bridge Note ---
H&P Re-Evaluation Bridge Note: I have examined the patient, reviewed the History & Physical and in the interval since the performance of the History & Physical I have noted the following changes of clinical significance: No changes noted
[2017-05-21] MEDS ORDERED: CEFAZOLIN SOD 1 GM VIAL ONE (13:41)
[2017-05-21] MEDS ORDERED: BACITRACIN 50000 UNIT VIAL ONE (13:44)
[2017-05-21] MEDS ORDERED: ONDANSETRON INJ 2 MG/ML 2 ML VIAL ONE (14:31)
[2017-05-21] MEDS ORDERED: LIDOCAINE HCL 2% 2 ML VIAL (20MG/ML) ONE (14:31)
[2017-05-21] MEDS ORDERED: PROPOFOL IV EMULSION 10 MG/ML 20 ML VIAL IV ONE (14:31)
[2017-05-21] MEDS ORDERED: CISATRACURIUM BESYLATE IV SOLN 2 MG/ML 10 ML VIAL ONE (14:31)
--- NOTE | 2017-05-21 15:22 | Hospitalist Progress Note ---
Hospitalist Progress Note Date of Service May 21, 2017. (Maggie Koehler PA-C) Subjective Pt evaluation today including: conversation w/ patient, physical exam, chart review, lab review, review of studies, review of inpatient medication list Patient seen and evaluated. No acute events overnight. Went for surgical repair today. Patient has no complaints. Looks in no distress. Thought he already had surgery and denied pain. Additional Comments: ROS largely deferred as patient denies everything and intermittently falls asleep. Denies pain. (Maggie Koehler PA-C) Medications Current Inpatient Medications Medications (Trade) Dose Ordered Sig/Mary Route Start Time Stop Time Status Last Admin Dose Admin Ondansetron HCl (Zofran Inj) 4 mg Q6H PRN IV 05/19/17 14:45 06/18/17 14:44 Acetaminophen (Tylenol Tab) 650 mg Q6H PRN PO 05/19/17 14:45 06/18/17 14:44 05/20/17 17:37 650 MG Naloxone HCl (Narcan Inj) 0.1 mg PRN PRN IV 05/19/17 14:45 06/18/17 14:44 Senna/Docusate Sodium (Senokot S Tab) 2 tab HS PO 05/19/17 21:00 06/18/17 20:59 05/20/17 21:18 2 TAB Polyethylene (Miralax Powder Packet) 17 gm DAILY PRN PO 05/19/17 14:45 06/18/17 14:44 Magnesium Hydroxide (Milk Of Magnesia Susp) 30 ml DAILY PRN PO 05/19/17 14:45 06/18/17 14:44 Bisacodyl (Dulcolax Supp) 10 mg DAILY PRN SC 05/19/17 14:45 06/18/17 14:44 Sodium Biphosphate/ Sodium Phosphate (Fleet Enema) 132 ml PRN PRN SC 05/19/17 14:45 Amitriptyline HCl (Elavil Tab) 10 mg HS PO 05/19/17 21:00 06/18/17 20:59 05/20/17 21:18 10 MG Fluoxetine HCl (Prozac Cap) 40 mg QAM PO 05/20/17 09:00 06/19/17 08:59 05/20/17 09:03 40 MG Gemfibrozil (Lopid Tab) 600 mg BID PO 05/19/17 21:00 06/18/17 20:59 05/20/17 21:18 600 MG Nitroglycerin (Nitrostat Tab) 0.4 mg PRN PRN SL 05/19/17 14:45 06/18/17 14:44 Potassium Chloride (Klor-Con M10) 20 meq DAILY PO 05/20/17 09:00 06/19/17 08:59 05/20/17 09:03 20 MEQ Tamsulosin HCl (Flomax Cap) 0.4 mg QAM PO 05/20/17 09:00 06/19/17 08:59 05/20/17 09:03 0.4 MG Cholecalciferol (Vitamin D Tab) 2,000 inter.unit DAILY PO 05/20/17 09:00 06/19/17 08:59 05/20/17 09:03 2,000 INTER.UNIT Tapentadol (Nucynta Er Tab) 100 mg Q12 PO 05/19/17 21:00 06/18/17 20:59 05/20/17 21:18 100 MG Cholecalciferol (Vitamin D Tab) 1,000 inter.unit QAM PO 05/20/17 09:00 06/19/17 08:59 05/20/17 09:04 1,000 INTER.UNIT Hydromorphone HCl (Dilaudid Inj) 0.25 mg Q30M PRN IV 05/19/17 22:00 06/02/17 21:59 05/21/17 03:11 0.25 MG Acetaminophen/ Hydrocodone Bitart ([place] 5/325 Tab) 1 tab Q4H PRN PO 05/20/17 13:15 06/03/17 13:14 05/21/17 00:49 1 TAB Quetiapine Fumarate (seroQUEL TAB) 12.5 mg HS PO 05/20/17 21:00 06/19/17 20:59 05/20/17 21:18 12.5 MG Hydromorphone HCl (Dilaudid Inj) 0.5 mg Q5M PRN IV 05/21/17 11:30 05/21/17 17:00 Fentanyl Citrate (Fentanyl Inj) 25 mcg Q5M PRN IV 05/21/17 11:30 05/21/17 17:00 Naloxone HCl (Narcan Inj) 0.2 mg Q2M PRN IV 05/21/17 11:30 05/21/17 17:00 Meperidine HCl (Demerol Inj) 12.5 mg Q5M PRN IV 05/21/17 11:30 05/21/17 17:00 Ondansetron HCl (Zofran Inj) 4 mg ONE PRN IV 05/21/17 11:30 05/21/17 17:00 Flumazenil (Romazicon Inj) 0.2 mg Q2M PRN IV 05/21/17 11:30 05/21/17 17:00 Labetalol HCl (Normodyne IV) 5 mg Q5M PRN IV 05/21/17 11:30 05/21/17 17:00 Ephedrine Sulfate (EpHEDrine SULFATE INJ) 5 mg Q5M PRN IV 05/21/17 11:30 05/21/17 17:00 Atropine Sulfate (Atropine Sulfate 0.1MG/Ml Inj) 0.5 mg Q1M PRN IV 05/21/17 11:30 05/21/17 17:00 Phenylephrine HCl (Jaspal-Synephrine 500MCG/5ML Syr) 100 mcg Q5M PRN IV 05/21/17 11:30 05/21/17 17:00 Cefazolin Sodium 60 ml @ 120 mls/hr PREOP IV 05/21/17 06:00 05/21/17 18:00 (Maggie Koehler, BELÉN-C) Objective Vital Signs Date Time Temp Pulse Resp B/P (MAP) Pulse Ox O2 Delivery O2 Flow Rate FiO2 05/21/17 11:36 36.6 75 18 145/82 (103) 95 Room Air 05/21/17 07:20 36.8 79 18 121/78 (92) 98 Room Air 05/21/17 07:15 Room Air 05/20/17 23:30 Room Air 05/20/17 22:58 36.3 77 17 122/74 (90) 96 Room Air (Maggie Koehler, BELÉN-C) Physical Exam General Appearance: WD/WN, no apparent distress Eyes: sclerae normal ENT: hearing grossly normal Neck: supple, no JVD, trachea midline Respiratory/Chest: lungs clear, normal breath sounds, no respiratory distress, no accessory muscle use Cardiovascular: regular rate, rhythm, no gallop, no murmur Abdomen: normal bowel sounds, non tender, soft Extremities: no pedal edema, no calf tenderness Neurologic/Psychiatric: alert Skin: normal color, warm/dry (Maggie Koehler PA-C) Laboratory Results Last 24 Hours Test 05/21/17 08:23 05/21/17 11:42 White Blood Count 3.95 K/uL Red Blood Count 3.38 M/uL Hemoglobin 10.4 g/dL Hematocrit 30.5 % Mean Corpuscular Volume 90.2 fL Mean Corpuscular Hemoglobin 30.8 pg Mean Corpuscular Hemoglobin Concent 34.1 g/dl Platelet Count 291 K/uL Mean Platelet Volume 9.3 fL Neutrophils (%) (Auto) 57.6 % Lymphocytes (%) (Auto) 24.1 % Monocytes (%) (Auto) 10.9 % Eosinophils (%) (Auto) 6.1 % Basophils (%) (Auto) 0.8 % Neutrophils # (Auto) 2.28 K/uL Lymphocytes # (Auto) 0.95 K/uL Monocytes # (Auto) 0.43 K/uL Eosinophils # (Auto) 0.24 K/uL Basophils # (Auto) 0.03 K/uL RDW Standard Deviation 42.2 fL RDW Coefficient of Variation 12.9 % Immature Granulocyte % (Auto) 0.5 % Immature Granulocyte # (Auto) 0.02 K/uL Sodium Level 138 mmol/L Potassium Level 3.7 mmol/L Chloride Level 107 mmol/L Carbon Dioxide Level 21 mmol/L Anion Gap 10.0 mmol/L Blood Urea Nitrogen 37 mg/dl Creatinine 1.50 mg/dl Est Creatinine Clear Calc Drug Dose 34.2 ml/min Estimated GFR () 48.2 Estimated GFR (Non- 41.6 BUN/Creatinine Ratio 24.5 Random Glucose 120 mg/dl Calcium Level 10.1 mg/dl Bedside Glucose 124 mg/dl (Maggie Koehler PA-C) Assessment and Plan This is a 87 yo M with PMHx of atrial fibrillation on xarelto, clotting disorder , hx of venous thromboembolism, hypertension, hyperlipidemia, dementia, BPH, osteoarthritis and osteopenia who presents with a left hip fracture from [place] [facility]. 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 - Improved to 1.5 - continue to monitor with BMP in AM Paroxysmal Atrial Fibrillation: NSR with Rate Control - Xarelto on hold - no rate control medication instituted Hypercoagulopathy with H/O VTE: - SANDRINE/SCDs; SC Heparin HTN: - Continue to hold Lasix Dementia/Mood Disorder: STABLE - Prozac 40 mg daily DVT Prophylaxis: SANDRINE/SCDs Code Status: FULL RESUSCITATION Disposition: - From [place] - will need acute PT/OT services - PT/OT Evaluations Continued [facility] stay due to: multiple IV medications needed [facility]charge planning: [facility] (Maggie Koehler PA-C) I examined patient and discussed case with APC. Physical Exam General Appearance: WD/WN, no apparent distress Eyes: sclerae normal ENT: hearing grossly normal Neck: supple, no JVD, trachea midline Respiratory/Chest: lungs clear, normal breath sounds, no respiratory distress, no accessory muscle use Cardiovascular: regular rate, rhythm, no gallop, no murmur Abdomen: normal bowel sounds, non tender, soft Extremities: no pedal edema, no calf tenderness Neurologic/Psychiatric: alert Skin: normal color, warm/dry I agree with anote including analysis and plan of patient. (Kimo Parra M.D.)
[2017-05-21] MEDS ORDERED: TRAMADOL HCL 50 MG TAB PO PRN (16:00)
[2017-05-21] MEDS ORDERED: EpHEDrine SULFATE 50MG/5ML SYR ONE (16:05)
[2017-05-21] MEDS ORDERED: PHENYLEPHRINE 100MCG/ML 5ML SYR ONE (16:05)
[2017-05-21] MEDS ORDERED: WATER, STERILE FOR INJ 10 ML VIAL ONE (16:05)
--- NOTE | 2017-05-21 16:06 | [facility] Post Operative Brief Note ---
Immediate Operative Summary Operative Date May 21, 2017. Pre-Operative Diagnosis Left femoral neck fracture Post-Operative Diagnosis Left femoral neck fracture Procedure(s) Performed Left Hip Hemiarthroplasty Surgeon Dr. Whitman/Dr. Parson Saw Man Surgeon(s) Dr. Whitman, Sascha Rangel PA-C Estimated Blood Loss 150 ML Findings see dictated op note Specimens A. Left femoral head Complication(s) None Disposition Recovery Room / PACU
--- NOTE | 2017-05-21 16:31 | Anesthesiology Progress Note ---
Anesthesia Post Op Note Date & Time May 21, 2017 at 16:30 Vital Signs Pain Intensity: 0 Vital Signs Past 12 Hours Date Time Temp Pulse Resp B/P (MAP) Pulse Ox O2 Delivery O2 Flow Rate FiO2 05/21/17 16:25 36.8 92 16 132/73 96 Room Air 05/21/17 16:15 95 16 127/69 93 Room Air 05/21/17 16:05 95 16 111/91 100 Oxymask 05/21/17 15:54 37 95 16 145/77 100 Oxymask 05/21/17 11:36 36.6 75 18 145/82 (103) 95 Room Air 05/21/17 07:20 36.8 79 18 121/78 (92) 98 Room Air 05/21/17 07:15 Room Air Notes Mental Status: alert / awake / arousable, participated in evaluation Pt Amnestic to Procedure: Yes Nausea / Vomiting: adequately controlled Pain: adequately controlled Airway Patency, RR, SpO2: stable & adequate BP & HR: stable & adequate Hydration State: stable & adequate Anesthetic Complications: no major complications apparent
--- NOTE | 2017-05-21 16:31 | DIAGNOSTIC IMAGING REPORT ---
LEFT HIP UNILATERAL 2 VIEWS CLINICAL HISTORY: Left hip fracture status post surgery. COMPARISON: 05/19/2017 DISCUSSION: 2 views reveal a bipolar left hip arthroplasty. There is no dislocation. There is a vague longitudinal lucency at the level of the greater trochanter. An incomplete trochanteric fracture cannot be excluded. There is air within the soft tissues consistent with recent surgery. IMPRESSION: 1. Postsurgical changes of a bipolar left hip arthroplasty. 2. No acute fractures 3. Nonspecific irregularity involving the base of the greater trochanter Electronically signed by: Axel Kang M.D. 05/21/2017 4:30 PM Dictated Date/Time: 05/21/2017 4:28 PM
--- NOTE | 2017-05-21 16:48 | Progress Note ---
Progress Note Date of Service May 21, 2017. Progress Note Post op - progress note Patient seen in the PACU resting comfortably. Pain well controlled, no acute issues. PE: LLE NVSI +EHL/FHL/TA/GS SILT grossly, CR< 2 seconds, compartments soft, dressing left hip c/d/i A/P s/p L Hip Hemiarthroplasty -WBAT LLE -PT/OT -Start Xarelto on 05/22/17, patient's home dose -Ancef x 24hours -Pain management - Tramadol -Posterior Hip Precautions -Abduction Pillow -XR Left Hip - checked in PACU
[2017-05-21 16:50] VITALS: BP 120/74; PULSE 93; TEMP 36.8; O2SAT 97
[2017-05-21] MEDS: SODIUM CHLORIDE 0.9% 1000ML 1,000 ML IV SCH (17:00)
[2017-05-21 17:20] VITALS: BP 152/83; PULSE 87; O2SAT 98
--- NOTE | 2017-05-21 17:39 | OPERATIVE REPORT ---
DATE OF OPERATION: 05/21/2017 PREOPERATIVE DIAGNOSIS: Garden 3 femoral neck fracture, left. POSTOPERATIVE DIAGNOSIS: Same. PROCEDURE: Bipolar hemiarthroplasty, left hip. SURGEON: Dr. Whitman. HOTEL OPERATIONS MANAGER: Suha Pires and Sascha Rangel PA-C. ANESTHESIA: None. COMPLICATIONS: None. DESCRIPTION OF PROCEDURE: Following induction of adequate anesthesia, the patient was placed in the right lateral decubitus position and the left hip was prepped and draped in usual sterile manner. A Fabiana Langenbeck incision was made. Subcutaneous tissue was sharply dissected. Electrocautery was used for hemostasis. Fascia was incised throughout the length of the wound and the piriformis was identified. A Walker scissors was placed beneath, the short external rotators were divided from the posterior aspect of the femur. Capsule was opened as well and attention was turned to the femoral neck where soft tissue was cleared from the femoral neck. The fracture was relatively high on the calcar and decision was made to proceed with the oscillating saw and create the calcar osteotomy. This bone fragment was removed. Following this, corkscrew was utilized to remove the femoral head. This was measured on the back table and the 50 femoral head was chosen as the size to be used. Attention was turned to the acetabulum which was found to have no significant arthritis. All bony debris was removed. A sponge was placed in the acetabulum. Attention was then turned to the proximal femur where box osteotome was used to gain access to the femoral canal. A canal finder and power lateralizing reamer were utilized to further open. Sequential raspings were taken up to a size 15, which was sunk completely and trial reduction was carried out and a +0 x 28 mm femoral head was chosen the size to be used with the 50 bipolar cup. Following a trial reduction the calcar reamer was utilized to smooth the calcar and the instruments were removed. The hip was thoroughly irrigated with pulsatile irrigation. The canal was irrigated and dried, cement restrictor was placed and cement was mixed. The 14 low demand fracture stem was placed with a 12 mm centralizer and this was held in position well. All excess cement was removed and cement hardened. Following this, another trial reduction was carried out and again a +0 neck size was chosen as the size to be used. The head and neck were impacted into position and the hip was reduced and was found to be stable to 45 degrees of internal rotation and 90 degrees of flexion. The wound was again irrigated. The joint mix was injected throughout the hip and the capsule was repaired using 0 Ethibond sutures through drill holes. Following this, the short external rotators were reapproximated to the posterior aspect of the femur also through drill holes and these were tied. The Betadine soaking solution was placed. After the final irrigation and the excess Betadine was suctioned out a Hemovac drain was placed. Fascia was closed using #1 Vicryl [id number] sutures, subcutaneous tissue was closed using 0 Dexon, and skin was closed with ZipLine. A sterile dressing of 4 x 4s, ABDs and foam tape was applied. The patient was taken to recovery room in stable and good condition. He tolerated the procedure well. I attest to the content of the Intraoperative Record and any orders documented therein. Any exception s are noted below.
[2017-05-21 18:53] VITALS: BP 134/85; PULSE 90; TEMP 36; O2SAT 98
[2017-05-21 19:50] VITALS: BP 113/64; PULSE 90; TEMP 36.5; O2SAT 99
[2017-05-21] MEDS: DOCUSATE SODIUM/SENNA 50/8.6MG TAB PO SCH ×2 (21:00→21:59)
[2017-05-21] MEDS: CEFAZOLIN IV 1,000 MG in DEXTROSE 5% 50ML 50 ML IV SCH (21:57)
[2017-05-21] MEDS: QUETIAPINE FUMARATE 25 MG TAB PO SCH (21:59)
[2017-05-21] MEDS: AMITRIPTYLINE HCL 10 MG TAB PO SCH (21:59)
[2017-05-21 22:45] VITALS: BP 124/74; PULSE 89; TEMP 37; O2SAT 96
[2017-05-22 03:47] VITALS: BP 131/73; PULSE 84; TEMP 36.8; O2SAT 97
[2017-05-22] MEDS: SODIUM CHLORIDE 0.9% 1000ML 1,000 ML IV SCH ×2 (04:38→16:11)
[2017-05-22] MEDS: CEFAZOLIN IV 1,000 MG in DEXTROSE 5% 50ML 50 ML IV SCH (04:39)
--- NOTE | 2017-05-22 07:04 | Orthopedic Progress Note ---
Orthopedic Progress Note Date of Service May 22, 2017. Subjective Post OP Day: 1 Reports: feeling well Additional Notes: Doing well, no acute issues overnight Objective calves soft nontender, N/V intact, hip located, capillary refill less than 2 sec., dressing C/D/I, toes mobile LLE NVSI +EHL/FHL/TA/GS SILT grossly, CR< 2 seconds, compartments soft NT Dressing with scant sang drainage. Date Time Temp Pulse Resp B/P (MAP) Pulse Ox O2 Delivery O2 Flow Rate FiO2 05/22/17 03:47 36.8 84 18 131/73 (92) 97 Room Air 05/21/17 23:15 Room Air 05/21/17 22:45 37.0 89 18 124/74 (91) 96 Room Air 05/21/17 19:50 36.5 90 18 113/64 (80) 99 Room Air 05/21/17 18:53 36.0 90 14 134/85 (101) 98 Room Air 05/21/17 17:20 87 18 152/83 (106) 98 Room Air 05/21/17 16:50 97 05/21/17 16:50 Room Air 05/21/17 16:50 36.8 93 14 120/74 (89) 97 Room Air 05/21/17 16:25 36.8 92 16 132/73 96 Room Air 05/21/17 16:15 95 16 127/69 93 Room Air 05/21/17 16:05 95 16 111/91 100 Oxymask 05/21/17 15:54 37 95 16 145/77 100 Oxymask 05/21/17 11:36 36.6 75 18 145/82 (103) 95 Room Air 05/21/17 07:20 36.8 79 18 121/78 (92) 98 Room Air 05/21/17 07:15 Room Air Laboratory Results 24 Hours: Test 05/21/17 08:23 05/22/17 04:44 White Blood Count 3.95 K/uL Red Blood Count 3.38 M/uL Hemoglobin 10.4 g/dL Hematocrit 30.5 % Mean Corpuscular Volume 90.2 fL Mean Corpuscular Hemoglobin 30.8 pg Mean Corpuscular Hemoglobin Concent 34.1 g/dl Platelet Count 291 K/uL Mean Platelet Volume 9.3 fL Neutrophils (%) (Auto) 57.6 % Lymphocytes (%) (Auto) 24.1 % Monocytes (%) (Auto) 10.9 % Eosinophils (%) (Auto) 6.1 % Basophils (%) (Auto) 0.8 % Neutrophils # (Auto) 2.28 K/uL Lymphocytes # (Auto) 0.95 K/uL Monocytes # (Auto) 0.43 K/uL Eosinophils # (Auto) 0.24 K/uL Basophils # (Auto) 0.03 K/uL Assessment & Plan Assessment: Left hip femoral neck fracture Plan: 87 yo male POD #1 s/p Left Hip Hemiarthroplasty -am labs pending -Restart Xarelto today - home medication -Pain control - Tramadol, would advise against narcotic medications -IV fluids -Ancef x24 hours -WBAT LLE -PT/OT -Abduction pillow when in bed -Posterior hip precautions -Silverlon dressing intact - keep in place x 7 days from date of surgery unless saturated.
[2017-05-22 07:35] VITALS: BP 133/75; PULSE 75; TEMP 36.8; O2SAT 94
[2017-05-22 08:07] LABS: BASO % 0.2 %; BASO ABS # 0.01 K/uL (0-0.2); HEMATOCRIT 25.4 % (42-52); IG% 0.2 %; LYMPH % 10.9 %; LYMPH ABS # 0.66 K/uL (1.2-3.4); MEAN CELL VOLUME 91.4 fL (80-100); MEAN CORPUSCULAR HEMOGLOBIN 30.9 pg (25-34); MEAN CORPUSCULAR HGB CONC 33.9 g/dl (32-36); MEAN PLATELET VOLUME 9.2 fL (7.4-10.4); MONO % 9.1 %; NEUT % 78.6 %; PLATELET COUNT 278 K/uL (130-400); RED BLOOD COUNT 2.78 M/uL (4.7-6.1); WHITE BLOOD COUNT 6.03 K/uL (4.8-10.8)
[2017-05-22] MEDS: POTASSIUM CHLORIDE 10 MEQ TABCR PO SCH (08:31)
[2017-05-22] MEDS: TAMSULOSIN HCL 0.4 MG CAP PO SCH (08:31)
[2017-05-22] MEDS: GEMFIBROZIL 600 MG TAB PO SCH ×2 (08:31→21:44)
[2017-05-22] MEDS: TAPENTADOL ER 50 MG TABCR PO SCH ×2 (08:32→21:43)
[2017-05-22] MEDS: FLUOXETINE HCL 20 MG CAP PO SCH (08:32)
[2017-05-22] MEDS: CHOLECALCIFEROL 1000 INTER.UNIT TAB PO SCH ×2 (08:32)
[2017-05-22 08:34] LABS: BUN/CREATININE RATIO 22.3 (10-20); CALCIUM 8.9 mg/dl (8.5-10.1); CREATININE 1.4 mg/dl (0.60-1.40); POTASSIUM 3.9 mmol/L (3.5-5.1)
[2017-05-22 08:41] LABS: COMPLETE YES
[2017-05-22 09:28] VITALS: BP 113/67; PULSE 87
[2017-05-22 11:35] VITALS: BP 109/65; PULSE 84; TEMP 36.4; O2SAT 96
--- NOTE | 2017-05-22 13:47 | Anesthesiology Progress Note ---
Anesthesia Post Op Note Date & Time May 22, 2017 at 13:46 Vital Signs Pain Intensity: 0.0 Vital Signs Past 12 Hours Date Time Temp Pulse Resp B/P (MAP) Pulse Ox O2 Delivery O2 Flow Rate FiO2 05/22/17 11:35 36.4 84 16 109/65 (80) 96 Room Air 05/22/17 09:28 87 05/22/17 07:35 36.8 75 16 133/75 (94) 94 Room Air 05/22/17 07:05 Room Air 05/22/17 03:47 36.8 84 18 131/73 (92) 97 Room Air Notes Mental Status: participated in evaluation, see Notes Pt Amnestic to Procedure: Yes Nausea / Vomiting: adequately controlled Pain: adequately controlled Airway Patency, RR, SpO2: stable & adequate BP & HR: stable & adequate Hydration State: stable & adequate Anesthetic Complications: no major complications apparent patient has dementia and is confused. Not changed from baseline.
[2017-05-22 15:41] VITALS: BP 103/61; PULSE 82; TEMP 36.6; O2SAT 96
[2017-05-22] MEDS: DOCUSATE SODIUM/SENNA 50/8.6MG TAB PO SCH ×2 (21:00)
[2017-05-22] MEDS: AMITRIPTYLINE HCL 10 MG TAB PO SCH (21:44)
[2017-05-22] MEDS: QUETIAPINE FUMARATE 25 MG TAB PO SCH (21:44)
--- NOTE | 2017-05-22 22:32 | Progress Note ---
Subjective Date of Service: May 22, 2017. Subjective Patient is found in bed, unable to provide history as he has poor insight. He denies having a hip fracture and attributes his pain to a hip strain. Problem List Medical Problems: (1) CKD (chronic kidney disease) Status: Acute (2) Difficulty swallowing Status: Acute (3) Fracture of fifth metatarsal bone Status: Acute (4) Hip fracture, left Status: Acute Review of Systems Constitutional: No fever, No chills Cardiac: No chest pain, No orthopnea Abdomen: No pain, No nausea Musculoskeletal: + joint pain, + muscle pain All Other Systems: Reviewed and Negative Objective Vital Signs Date Time Temp Pulse Resp B/P (MAP) Pulse Ox O2 Delivery O2 Flow Rate FiO2 05/22/17 16:00 Room Air 05/22/17 15:41 36.6 82 18 103/61 (75) 96 Room Air 05/22/17 11:35 36.4 84 16 109/65 (80) 96 Room Air 05/22/17 09:28 87 05/22/17 07:35 36.8 75 16 133/75 (94) 94 Room Air 05/22/17 07:05 Room Air 05/22/17 03:47 36.8 84 18 131/73 (92) 97 Room Air 05/21/17 23:15 Room Air 05/21/17 22:45 37.0 89 18 124/74 (91) 96 Room Air Physical Exam General Appearance: WD/WN, no apparent distress Neck: supple, no adenopathy, thyroid normal Respiratory/Chest: chest non-tender, lungs clear, normal breath sounds Cardiovascular: regular rate, rhythm, no edema, no gallop Abdomen: normal bowel sounds, non tender, soft Comments: left hip surgical wound has dry dressing no erythema around drsessing. Laboratory Results Last 24 Hours Test 05/22/17 07:47 White Blood Count 6.03 K/uL Red Blood Count 2.78 M/uL Hemoglobin 8.6 g/dL Hematocrit 25.4 % Mean Corpuscular Volume 91.4 fL Mean Corpuscular Hemoglobin 30.9 pg Mean Corpuscular Hemoglobin Concent 33.9 g/dl Platelet Count 278 K/uL Mean Platelet Volume 9.2 fL Neutrophils (%) (Auto) 78.6 % Lymphocytes (%) (Auto) 10.9 % Monocytes (%) (Auto) 9.1 % Eosinophils (%) (Auto) 1.0 % Basophils (%) (Auto) 0.2 % Neutrophils # (Auto) 4.74 K/uL Lymphocytes # (Auto) 0.66 K/uL Monocytes # (Auto) 0.55 K/uL Eosinophils # (Auto) 0.06 K/uL Basophils # (Auto) 0.01 K/uL RDW Standard Deviation 42.6 fL RDW Coefficient of Variation 12.8 % Immature Granulocyte % (Auto) 0.2 % Immature Granulocyte # (Auto) 0.01 K/uL Red Blood Cell Morphology Unremarkable Sodium Level 140 mmol/L Potassium Level 3.9 mmol/L Chloride Level 108 mmol/L Carbon Dioxide Level 22 mmol/L Anion Gap 10.0 mmol/L Blood Urea Nitrogen 31 mg/dl Creatinine 1.40 mg/dl Est Creatinine Clear Calc Drug Dose 36.6 ml/min Estimated GFR () 52.4 Estimated GFR (Non- 45.2 BUN/Creatinine Ratio 22.3 Random Glucose 146 mg/dl Calcium Level 8.9 mg/dl Assessment and Plan This is a 87 yo M with PMHx of atrial fibrillation on xarelto, clotting disorder , hx of venous thromboembolism, hypertension, hyperlipidemia, dementia, BPH, osteoarthritis and osteopenia who presents with a left hip fracture from [facility]. 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 stay due to: multiple IV medications needed Discharge planning: fdc facility Continued [facility] stay due to: multiple IV medications needed Discharge planning: fdc facility
[2017-05-22 22:58] VITALS: BP 93/55; PULSE 88; TEMP 36.9; O2SAT 95
[2017-05-22] MEDS ORDERED: NURSING VERBAL MED ORDER ONE ×2 (23:30→23:45)
[2017-05-23] MEDS: SODIUM CHLORIDE 0.9% 1000ML 1,000 ML IV SCH ×2 (03:05→14:34)
[2017-05-23] MEDS ORDERED: POLYETHYLENE (MIRALAX) 17 GM PACK PO SCH (06:00)
[2017-05-23 06:45] LABS: BASO % 0.4 %; BASO ABS # 0.02 K/uL (0-0.2); EOS % 5.8 %; HEMATOCRIT 23.6 % (42-52); IG% 0.7 %; LYMPH % 17.2 %; LYMPH ABS # 0.95 K/uL (1.2-3.4); MEAN CELL VOLUME 90.8 fL (80-100); MEAN CORPUSCULAR HEMOGLOBIN 30.8 pg (25-34); MEAN CORPUSCULAR HGB CONC 33.9 g/dl (32-36); MONO % 11.4 %; NEUT % 64.5 %; PLATELET COUNT 253 K/uL (130-400); WHITE BLOOD COUNT 5.53 K/uL (4.8-10.8)
[2017-05-23 07:44] LABS: COMPLETE YES
[2017-05-23 07:45] VITALS: BP 125/70; PULSE 76; TEMP 36.6; O2SAT 97
[2017-05-23] MEDS: TAPENTADOL ER 50 MG TABCR PO SCH ×2 (08:55→20:04)
[2017-05-23] MEDS: GEMFIBROZIL 600 MG TAB PO SCH ×2 (08:55→20:04)
[2017-05-23] MEDS: POTASSIUM CHLORIDE 10 MEQ TABCR PO SCH (08:55)
[2017-05-23] MEDS: TAMSULOSIN HCL 0.4 MG CAP PO SCH (08:55)
[2017-05-23] MEDS: CHOLECALCIFEROL 1000 INTER.UNIT TAB PO SCH ×2 (08:56)
[2017-05-23] MEDS: FLUOXETINE HCL 20 MG CAP PO SCH (08:56)
--- NOTE | 2017-05-23 09:52 | Orthopedic Progress Note ---
Orthopedic Progress Note Date of Service May 23, 2017. Subjective Post OP Day: 2 Reports: feeling well, Denies: complaints Additional Notes: Mr Maynard doing well this am, has no complains, pain controlled, no acute issues overnight. Objective NAD LLE NVSI +EHL/FHL/TA/GS SILT Grossly, CR < 2 sec, +2 DP Pulse Compartments soft, silverlon CDI Date Time Temp Pulse Resp B/P (MAP) Pulse Ox O2 Delivery O2 Flow Rate FiO2 05/23/17 07:45 36.6 76 15 125/70 (88) 97 Room Air 05/23/17 00:00 Room Air 05/22/17 22:58 36.9 88 16 93/55 (68) 95 Room Air 05/22/17 16:00 Room Air 05/22/17 15:41 36.6 82 18 103/61 (75) 96 Room Air 05/22/17 11:35 36.4 84 16 109/65 (80) 96 Room Air Laboratory Results 24 Hours: Test 05/23/17 06:27 White Blood Count 5.53 K/uL Red Blood Count 2.60 M/uL Hemoglobin 8.0 g/dL Hematocrit 23.6 % Mean Corpuscular Volume 90.8 fL Mean Corpuscular Hemoglobin 30.8 pg Mean Corpuscular Hemoglobin Concent 33.9 g/dl Platelet Count 253 K/uL Mean Platelet Volume 9.0 fL Neutrophils (%) (Auto) 64.5 % Lymphocytes (%) (Auto) 17.2 % Monocytes (%) (Auto) 11.4 % Eosinophils (%) (Auto) 5.8 % Basophils (%) (Auto) 0.4 % Neutrophils # (Auto) 3.57 K/uL Lymphocytes # (Auto) 0.95 K/uL Monocytes # (Auto) 0.63 K/uL Eosinophils # (Auto) 0.32 K/uL Basophils # (Auto) 0.02 K/uL Assessment & Plan Assessment: Left hip femoral neck fracture Plan: 87 yo male POD #2 s/p Left Hip Hemiarthroplasty -am labs -Hbg today 8.0, no active bleeding at the dressing site, patients vitals WNL -Restart Xarelto today - home medication -Pain control - Tramadol, would advise against narcotic medications -IV fluids -WBAT LLE -PT/OT -Abduction pillow when in bed -Posterior hip precautions -Silverlon dressing intact - keep in place x 7 days from date of surgery unless saturated.
[2017-05-23 12:24] LABS: HEMATOCRIT 25.6 % (42-52); MEAN CELL VOLUME 92.1 fL (80-100); MEAN CORPUSCULAR HEMOGLOBIN 30.2 pg (25-34); MEAN CORPUSCULAR HGB CONC 32.8 g/dl (32-36); PLATELET COUNT 287 K/uL (130-400); RED BLOOD COUNT 2.78 M/uL (4.7-6.1); WHITE BLOOD COUNT 6.21 K/uL (4.8-10.8)
[2017-05-23] MEDS ORDERED: NURSING VERBAL MED ORDER ONE ×2 (12:30)
[2017-05-23] MEDS: RIVAROXABAN TAB 15 MG TAB PO SCH (13:36)
[2017-05-23] MEDS: ACETAMINOPHEN 325 MG TAB PO PRN (13:51)
[2017-05-23 15:44] VITALS: BP 118/69; PULSE 77; TEMP 36.7; O2SAT 96
--- NOTE | 2017-05-23 16:16 | Hospitalist Progress Note ---
Hospitalist Progress Note Date of Service May 23, 2017. (Maggie Koehler PA-C) Subjective Pt evaluation today including: conversation w/ patient, physical exam, chart review, lab review, review of studies, review of inpatient medication list Patient seen and evaluated. Hgb dropped to 8.0 with repeat up to 8.4. No significant cardiac history present but history is limited given dementia and cardiac testing multiple years old. From what the patient states he is asymptomatic but ROS limited again due to dementia. Will hold of on transfusion at this time but would proceed if < 8. Patient not complaining of any leg pain. Constitutional: No fever, No chills Respiratory: No shortness of breath Cardiovascular: No chest pain, No palpitations Abdomen: No pain, No nausea, No vomiting Musculoskeletal: No joint pain Male : No dysuria Heme: No abnormal bleeding/bruising (Maggie Koehler PA-C) Medications Current Inpatient Medications Medications (Trade) Dose Ordered Sig/Mary Route Start Time Stop Time Status Last Admin Dose Admin Acetaminophen (Tylenol Tab) 650 mg Q6H PRN PO 05/19/17 14:45 06/18/17 14:44 05/23/17 13:51 650 MG Naloxone HCl (Narcan Inj) 0.1 mg PRN PRN IV 05/19/17 14:45 06/18/17 14:44 Polyethylene (Miralax Powder Packet) 17 gm DAILY PRN PO 05/19/17 14:45 06/18/17 14:44 Magnesium Hydroxide (Milk Of Magnesia Susp) 30 ml DAILY PRN PO 05/19/17 14:45 06/18/17 14:44 Bisacodyl (Dulcolax Supp) 10 mg DAILY PRN CO 05/19/17 14:45 06/18/17 14:44 Sodium Biphosphate/ Sodium Phosphate (Fleet Enema) 132 ml PRN PRN CO 05/19/17 14:45 Amitriptyline HCl (Elavil Tab) 10 mg HS PO 05/19/17 21:00 06/18/17 20:59 05/22/17 21:44 10 MG Fluoxetine HCl (Prozac Cap) 40 mg QAM PO 05/20/17 09:00 06/19/17 08:59 05/23/17 08:56 40 MG Gemfibrozil (Lopid Tab) 600 mg BID PO 05/19/17 21:00 06/18/17 20:59 05/23/17 08:55 600 MG Nitroglycerin (Nitrostat Tab) 0.4 mg PRN PRN SL 05/19/17 14:45 06/18/17 14:44 Potassium Chloride (Klor-Con M10) 20 meq DAILY PO 05/20/17 09:00 06/19/17 08:59 05/23/17 08:55 20 MEQ Tamsulosin HCl (Flomax Cap) 0.4 mg QAM PO 05/20/17 09:00 06/19/17 08:59 05/23/17 08:55 0.4 MG Cholecalciferol (Vitamin D Tab) 2,000 inter.unit DAILY PO 05/20/17 09:00 06/19/17 08:59 05/23/17 08:56 2,000 INTER.UNIT Tapentadol (Nucynta Er Tab) 100 mg Q12 PO 05/19/17 21:00 06/18/17 20:59 05/23/17 08:55 100 MG Cholecalciferol (Vitamin D Tab) 1,000 inter.unit QAM PO 05/20/17 09:00 06/19/17 08:59 05/23/17 08:56 1,000 INTER.UNIT Hydromorphone HCl (Dilaudid Inj) 0.25 mg Q30M PRN IV 05/19/17 22:00 06/02/17 21:59 05/21/17 03:11 0.25 MG Acetaminophen/ Hydrocodone Bitart ([place] 5/325 Tab) 1 tab Q4H PRN PO 05/20/17 13:15 06/03/17 13:14 05/21/17 00:49 1 TAB Quetiapine Fumarate (seroQUEL TAB) 12.5 mg HS PO 05/20/17 21:00 06/19/17 20:59 05/22/17 21:44 12.5 MG Sodium Chloride 1,000 ml @ 85 mls/hr [id number] IV 05/21/17 16:15 06/20/17 16:14 05/23/17 14:34 85 MLS/HR Ondansetron HCl (Zofran Inj) 4 mg Q6H PRN IV 05/21/17 16:00 06/20/17 15:59 Senna/Docusate Sodium (Senokot S Tab) 2 tab HS PO 05/21/17 21:00 06/20/17 20:59 Rivaroxaban (Xarelto Tab) 15 mg DAILY PO 05/23/17 14:00 06/22/17 13:59 05/23/17 13:36 15 MG (Maggie Koehler PA-C) Objective Vital Signs Date Time Temp Pulse Resp B/P (MAP) Pulse Ox O2 Delivery O2 Flow Rate FiO2 05/23/17 15:44 36.7 77 18 118/69 (85) 96 Room Air 05/23/17 09:00 Room Air 05/23/17 07:45 36.6 76 15 125/70 (88) 97 Room Air 05/23/17 00:00 Room Air 05/22/17 22:58 36.9 88 16 93/55 (68) 95 Room Air 05/22/17 16:00 Room Air (Maggie Koehler PA-C) Physical Exam General Appearance: no apparent distress Eyes: sclerae normal ENT: hearing grossly normal Neck: supple, no JVD, trachea midline Respiratory/Chest: lungs clear, normal breath sounds, no respiratory distress, no accessory muscle use Cardiovascular: regular rate, rhythm, no gallop, no murmur Abdomen: normal bowel sounds, non tender, soft Extremities: no calf tenderness, + pertinent finding (dressing C/D/I to LLE) Neurologic/Psychiatric: alert, + disoriented Skin: + pallor (Maggie Koehler PA-C) Laboratory Results Last 24 Hours Test 05/23/17 06:27 05/23/17 12:07 White Blood Count 5.53 K/uL 6.21 K/uL Red Blood Count 2.60 M/uL 2.78 M/uL Hemoglobin 8.0 g/dL 8.4 g/dL Hematocrit 23.6 % 25.6 % Mean Corpuscular Volume 90.8 fL 92.1 fL Mean Corpuscular Hemoglobin 30.8 pg 30.2 pg Mean Corpuscular Hemoglobin Concent 33.9 g/dl 32.8 g/dl Platelet Count 253 K/uL 287 K/uL Mean Platelet Volume 9.0 fL 9.0 fL Neutrophils (%) (Auto) 64.5 % Lymphocytes (%) (Auto) 17.2 % Monocytes (%) (Auto) 11.4 % Eosinophils (%) (Auto) 5.8 % Basophils (%) (Auto) 0.4 % Neutrophils # (Auto) 3.57 K/uL Lymphocytes # (Auto) 0.95 K/uL Monocytes # (Auto) 0.63 K/uL Eosinophils # (Auto) 0.32 K/uL Basophils # (Auto) 0.02 K/uL RDW Standard Deviation 42.8 fL 44.2 fL RDW Coefficient of Variation 13.0 % 13.1 % Immature Granulocyte % (Auto) 0.7 % Immature Granulocyte # (Auto) 0.04 K/uL Red Blood Cell Morphology Unremarkable (Maggie Koehler PA-C) Assessment and Plan This is a 87 yo M with PMHx of atrial fibrillation on xarelto, clotting disorder , hx of venous thromboembolism, hypertension, hyperlipidemia, dementia, BPH, osteoarthritis and osteopenia who presents with a left hip fracture from [facility]. 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 - Improved to 1.5 - continue to monitor Paroxysmal Atrial Fibrillation: - Xarelto 15 mg daily for renal dosing - no rate control medication Hypercoagulopathy with H/O VTE: - SANDRINE/SCDs; SC Heparin HTN: - Continue to hold Lasix Dementia/Mood Disorder: STABLE - Prozac 40 mg daily - Seroquel 12.5 mg HS DVT Prophylaxis: SANDRINE/SCDs Code Status: FULL RESUSCITATION Disposition: - From [facility] - likely D/C 1-2 days if stabilization of Hgb Continued [facility] stay due to: ambulation difficulties Discharge planning: senior care facility (Maggie Koehler PA-C) I examined patient and discussed case with APC. I agree with above note. General Appearance: no apparent distress Eyes: sclerae normal ENT: hearing grossly normal Neck: supple, no JVD, trachea midline Respiratory/Chest: lungs clear, normal breath sounds, no respiratory distress, no accessory muscle use Cardiovascular: regular rate, rhythm, no gallop, no murmur Abdomen: normal bowel sounds, non tender, soft Extremities: no calf tenderness, + pertinent finding (dressing C/D/I to LLE) Neurologic/Psychiatric: alert, + disoriented Skin: + pallor My exam did not differ from APC. (Kimo Parra M.D.)
[2017-05-23 16:30] VITALS: O2SAT 96
[2017-05-23] MEDS: DOCUSATE SODIUM/SENNA 50/8.6MG TAB PO SCH (19:56)
[2017-05-23] MEDS: AMITRIPTYLINE HCL 10 MG TAB PO SCH (20:04)
[2017-05-23] MEDS: QUETIAPINE FUMARATE 25 MG TAB PO SCH (20:05)
[2017-05-23 23:10] VITALS: BP 103/67; PULSE 82; TEMP 37.5; O2SAT 96
[2017-05-24 07:28] VITALS: BP 130/72; PULSE 70; TEMP 36.7; O2SAT 96
[2017-05-24] MEDS: ACETAMINOPHEN 325 MG TAB PO PRN ×2 (09:21→14:26)
[2017-05-24] MEDS: GEMFIBROZIL 600 MG TAB PO SCH ×2 (09:21→21:14)
[2017-05-24] MEDS: TAPENTADOL ER 50 MG TABCR PO SCH ×2 (09:21→20:51)
[2017-05-24] MEDS: TAMSULOSIN HCL 0.4 MG CAP PO SCH (09:22)
[2017-05-24] MEDS: FLUOXETINE HCL 20 MG CAP PO SCH (09:22)
[2017-05-24] MEDS: CHOLECALCIFEROL 1000 INTER.UNIT TAB PO SCH ×2 (09:22→09:23)
[2017-05-24] MEDS: POTASSIUM CHLORIDE 10 MEQ TABCR PO SCH (09:22)
[2017-05-24] MEDS: RIVAROXABAN TAB 15 MG TAB PO SCH (09:23)
[2017-05-24 09:27] LABS: HEMATOCRIT 24.4 % (42-52); MEAN CELL VOLUME 92.4 fL (80-100); MEAN CORPUSCULAR HEMOGLOBIN 31.8 pg (25-34); MEAN CORPUSCULAR HGB CONC 34.4 g/dl (32-36); MEAN PLATELET VOLUME 8.9 fL (7.4-10.4); PLATELET COUNT 276 K/uL (130-400); RED BLOOD COUNT 2.64 M/uL (4.7-6.1); WHITE BLOOD COUNT 5.52 K/uL (4.8-10.8)
--- NOTE | 2017-05-24 10:31 | Orthopedic Progress Note ---
Orthopedic Progress Note Date of Service May 24, 2017. Subjective Additional Notes: Patient comfortable, no acute issues overnight Objective NAD LLE NVSI +EHL/FHL/TA/GS SILT Grossly, CR < 2 sec, +2 DP Pulse Compartments soft, silverlon CDI Date Time Temp Pulse Resp B/P (MAP) Pulse Ox O2 Delivery O2 Flow Rate FiO2 05/24/17 07:28 36.7 70 18 130/72 (91) 96 Room Air 05/23/17 23:30 Room Air 05/23/17 23:10 37.5 82 18 103/67 (79) 96 Room Air 05/23/17 19:45 Room Air 05/23/17 16:30 96 Room Air 05/23/17 15:44 36.7 77 18 118/69 (85) 96 Room Air Laboratory Results 24 Hours: Test 05/23/17 12:07 05/24/17 09:09 Hematocrit 25.6 % 24.4 % Hemoglobin 8.4 g/dL 8.4 g/dL Assessment & Plan Assessment: Left hip femoral neck fracture Plan: 87 yo male POD #3 s/p Left Hip Hemiarthroplasty, left foot 5th MT neck fx -am labs -Hbg today 8.4, no active bleeding at the dressing site, patient vitals stable -DVT PPX xarelto -Pain control - Tramadol, would advise against narcotic medications -WBAT LLE -PT/OT -Abduction pillow when in bed -Posterior hip precautions -Silverlon dressing intact - keep in place x 7 days from date of surgery unless saturated. -Post op shoe ordred for left foot MT neck fracture. Patient may weight bear as tolerates when wearing shoe. The patient is stable per orthopedics, we will sign off, call with questions, recs left in documents.
--- NOTE | 2017-05-24 10:33 | Consultant Recommendations ---
Materials And Processes Manager Recommendations Date of Service May 24, 2017. Materials And Processes Manager Recommendations U DISCHARGE INSTRUCTIONS: HIP FRACTURE SELF CARE INSTRUCTIONS: A. You are to ambulate with a walker or crutches for approximately 6 weeks. B. You are WEIGHT BEARING TOLERATE on your operative lower extremity for at least 6 weeks, wear orthotic on left foot when weight bearing C. Wear low heeled shoes with non-slip soles D. Be sure that your floors are free of things that could trip you throw rugs, electrical cords, and small objects. Avoid wet and waxed floors, especially with crutches/walker/cane. E. Try to walk several times a day with rest periods between. F. You may shower 48 hours after surgery and get the incision area wet, but DO NOT soak or submerge incision area in water. (No baths, swimming pools, hot tubs ) G. You may have a large, band-aid like dressing over your incision (Aquacel). This will remain on your incision for 7 days, and then can be removed. You CAN shower with this on. If incision is leaking through the dressing, please call the office . H. Do NOT apply soap or any ointment/lotions directly over incision. I. You may use ice as needed to operative site. SPECIAL CARE INSTRUCTIONS: VERY IMPORTANT TO READ AND REVIEW A. You may be at risk for phlebitis or blood clots. a. Wear surgical stockings (SANDRINE hose) for 2 weeks after surgery to improve circulation and reduce swelling. b. Take your home medication, Xarelto as directed. This is your blood thinner. c. If you are on Coumadin- you will have daily/weekly blood work to monitor your levels. This will be done by either your family physician/ retail client solutions analyst (if you are on Coumadin chronically) versus your orthopedic surgeon. Expect a phone call the day of or the day after your blood work is drawn to adjust your dose accordingly. B. There are a few signs you need to watch for after you are home. Call [facility] at [phone] if you experience any of the following: a. If you have a temperature of 101 degrees or higher. b. Sudden increase in pain in your hip not relieved by rest or pain medication. c. Any fluid or drainage from the incision; redness of the incision. d. Shortness of breath or chest pain. B. Please call [facility] at [phone] if you have any questions or concerns about your operation or recovery. C. Call your physician if: a. Temperature is greater than 101 degrees (F). b. Pain is not relieved by prescribed pain medications. c. Increase drainage or redness from incision. d. Unanswered questions or concerns. D. Pain Medication: a. You will be prescribed pain medication upon discharge that should last till your first post-operative appointment. b. If you experience nausea and/or skin rash, discontinue this medication and contact our office for an alternative medication. c. Caution- narcotic pain medication can cause constipation. FOLLOW UP VISIT: Please call [facility] at [phone] to schedule a follow up appointment 10-14 days from the date of your surgery date.
[2017-05-24 15:20] VITALS: BP 111/68; PULSE 85; TEMP 36.3; O2SAT 100
[2017-05-24 16:30] VITALS: O2SAT 100
--- NOTE | 2017-05-24 17:07 | Hospitalist Progress Note ---
Hospitalist Progress Note Date of Service May 24, 2017. (Maggie Koehler PA-C) Subjective Pt evaluation today including: conversation w/ patient, physical exam, chart review, lab review, review of studies, review of inpatient medication list Patient seen and evaluated. No acute events overnight. Patient looks great and verbalizes no complaints but never does. Very pleasant and reporting L leg pain resolved. Hemoglobin stable. Ambulating with assistance. Constitutional: No fever, No chills Respiratory: No cough, No shortness of breath Cardiovascular: No chest pain Abdomen: No pain, No nausea, No vomiting, No diarrhea, No constipation Musculoskeletal: No joint pain Male : No dysuria (Maggie Koehler PA-C) Medications Current Inpatient Medications Medications (Trade) Dose Ordered Sig/Mary Route Start Time Stop Time Status Last Admin Dose Admin Acetaminophen (Tylenol Tab) 650 mg Q6H PRN PO 05/19/17 14:45 06/18/17 14:44 05/24/17 14:26 650 MG Naloxone HCl (Narcan Inj) 0.1 mg PRN PRN IV 05/19/17 14:45 06/18/17 14:44 Polyethylene (Miralax Powder Packet) 17 gm DAILY PRN PO 05/19/17 14:45 06/18/17 14:44 Magnesium Hydroxide (Milk Of Magnesia Susp) 30 ml DAILY PRN PO 05/19/17 14:45 06/18/17 14:44 Bisacodyl (Dulcolax Supp) 10 mg DAILY PRN [place] 05/19/17 14:45 06/18/17 14:44 Sodium Biphosphate/ Sodium Phosphate (Fleet Enema) 132 ml PRN PRN [place] 05/19/17 14:45 Amitriptyline HCl (Elavil Tab) 10 mg HS PO 05/19/17 21:00 06/18/17 20:59 05/23/17 20:04 10 MG Fluoxetine HCl (Prozac Cap) 40 mg QAM PO 05/20/17 09:00 06/19/17 08:59 05/24/17 09:22 40 MG Gemfibrozil (Lopid Tab) 600 mg BID PO 05/19/17 21:00 06/18/17 20:59 05/24/17 09:21 600 MG Nitroglycerin (Nitrostat Tab) 0.4 mg PRN PRN SL 05/19/17 14:45 06/18/17 14:44 Potassium Chloride (Klor-Con M10) 20 meq DAILY PO 05/20/17 09:00 06/19/17 08:59 05/24/17 09:22 20 MEQ Tamsulosin HCl (Flomax Cap) 0.4 mg QAM PO 05/20/17 09:00 06/19/17 08:59 05/24/17 09:22 0.4 MG Cholecalciferol (Vitamin D Tab) 2,000 inter.unit DAILY PO 05/20/17 09:00 06/19/17 08:59 05/24/17 09:23 2,000 INTER.UNIT Tapentadol (Nucynta Er Tab) 100 mg Q12 PO 05/19/17 21:00 06/18/17 20:59 05/24/17 09:21 100 MG Cholecalciferol (Vitamin D Tab) 1,000 inter.unit QAM PO 05/20/17 09:00 06/19/17 08:59 05/24/17 09:22 1,000 INTER.UNIT Hydromorphone HCl (Dilaudid Inj) 0.25 mg Q30M PRN IV 05/19/17 22:00 06/02/17 21:59 05/21/17 03:11 0.25 MG Quetiapine Fumarate (seroQUEL TAB) 12.5 mg HS PO 05/20/17 21:00 06/19/17 20:59 05/23/17 20:05 12.5 MG Ondansetron HCl (Zofran Inj) 4 mg Q6H PRN IV 05/21/17 16:00 06/20/17 15:59 Senna/Docusate Sodium (Senokot S Tab) 2 tab HS PO 05/21/17 21:00 06/20/17 20:59 Rivaroxaban (Xarelto Tab) 15 mg DAILY PO 05/23/17 14:00 06/22/17 13:59 05/24/17 09:23 15 MG (Maggie Koehler PA-C) Objective Vital Signs Date Time Temp Pulse Resp B/P (MAP) Pulse Ox O2 Delivery O2 Flow Rate FiO2 05/24/17 15:20 36.3 85 16 111/68 (82) 100 Room Air 05/24/17 07:45 Room Air 05/24/17 07:28 36.7 70 18 130/72 (91) 96 Room Air 05/23/17 23:30 Room Air 05/23/17 23:10 37.5 82 18 103/67 (79) 96 Room Air 05/23/17 19:45 Room Air (Maggie Koehler PA-C) Physical Exam General Appearance: WD/WN, no apparent distress Neck: supple, no JVD, trachea midline Respiratory/Chest: lungs clear, normal breath sounds, no respiratory distress, no accessory muscle use Cardiovascular: regular rate, rhythm, no gallop, no murmur Abdomen: normal bowel sounds, non tender, soft Extremities: + pertinent finding (dressing to L hip C/D/I) Neurologic/Psychiatric: alert Skin: normal color, warm/dry (Maggie Koehler, BELÉN-C) Laboratory Results Last 24 Hours Test 05/24/17 09:09 White Blood Count 5.52 K/uL Red Blood Count 2.64 M/uL Hemoglobin 8.4 g/dL Hematocrit 24.4 % Mean Corpuscular Volume 92.4 fL Mean Corpuscular Hemoglobin 31.8 pg Mean Corpuscular Hemoglobin Concent 34.4 g/dl RDW Standard Deviation 44.1 fL RDW Coefficient of Variation 13.0 % Platelet Count 276 K/uL Mean Platelet Volume 8.9 fL (Maggie Koehler, PA-C) Assessment and Plan This is a 87 yo M with PMHx of atrial fibrillation on xarelto, clotting disorder , hx of venous thromboembolism, hypertension, hyperlipidemia, dementia, BPH, osteoarthritis and osteopenia who presents with a left hip fracture from [place] crest. 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 I agree with above note. General Appearance: WD/WN, no apparent distress Neck: supple, no JVD, trachea midline Respiratory/Chest: lungs clear, normal breath sounds, no respiratory distress, no accessory muscle use Cardiovascular: regular rate, rhythm, no gallop, no murmur Abdomen: normal bowel sounds, non tender, soft Extremities: + pertinent finding (dressing to L hip C/D/I) Neurologic/Psychiatric: alert Skin: normal color, warm/d My exam did not differ from APC. (Kimo Parra M.D.)
[2017-05-24 17:12] VITALS: BP 158/79; PULSE 99; TEMP 36.7; O2SAT 11
[2017-05-24] MEDS: DOCUSATE SODIUM/SENNA 50/8.6MG TAB PO SCH (20:44)
[2017-05-24] MEDS: QUETIAPINE FUMARATE 25 MG TAB PO SCH (20:45)
[2017-05-24] MEDS: AMITRIPTYLINE HCL 10 MG TAB PO SCH (20:45)
[2017-05-24 23:15] VITALS: BP 119/67; PULSE 85; TEMP 36.6; O2SAT 98
[2017-05-25] MEDS: ACETAMINOPHEN 325 MG TAB PO PRN ×2 (00:44→10:04)
[2017-05-25 05:48] LABS: HEMATOCRIT 24.3 % (42-52); MEAN CELL VOLUME 90.7 fL (80-100); MEAN CORPUSCULAR HGB CONC 34.2 g/dl (32-36); PLATELET COUNT 299 K/uL (130-400); RED BLOOD COUNT 2.68 M/uL (4.7-6.1)
[2017-05-25 06:25] LABS: BUN/CREATININE RATIO 16.7 (10-20); CALCIUM 9.2 mg/dl (8.5-10.1); CREATININE 1.5 mg/dl (0.60-1.40); POTASSIUM 3.9 mmol/L (3.5-5.1)
[2017-05-25 06:51] VITALS: BP 121/75; PULSE 77; TEMP 36.4; O2SAT 97
[2017-05-25] MEDS: GEMFIBROZIL 600 MG TAB PO SCH (09:57)
[2017-05-25] MEDS: RIVAROXABAN TAB 15 MG TAB PO SCH (09:57)
[2017-05-25] MEDS: CHOLECALCIFEROL 1000 INTER.UNIT TAB PO SCH (09:58)
[2017-05-25] MEDS: TAMSULOSIN HCL 0.4 MG CAP PO SCH (09:59)
[2017-05-25] MEDS: FLUOXETINE HCL 20 MG CAP PO SCH (09:59)
[2017-05-25] MEDS: POTASSIUM CHLORIDE 10 MEQ TABCR PO SCH (09:59)
[2017-05-25] MEDS: TAPENTADOL ER 50 MG TABCR PO SCH (10:04)
[2017-05-25] MEDS ORDERED: SRQ25 PO (10:26)
--- NOTE | 2017-05-25 10:34 | Discharge Instructions ---
Discharge Instructions Date of Service May 25, 2017. Admission Reason for Admission: Hip Fracture, Left Discharge Discharge Diagnosis / Problem: Left hip fracture Discharge Goals Goal(s): Decrease discomfort, Improve function, Increase independence, Learn about illness, Diagnostic testing, Therapeutic intervention, Prevent Disease Progression Activity Recommendations Activity Level: Assistance Required Therapies: Physical Therapy, Occupational Therapy As per orthopedics recommendations Additional Information Patient informed of condition: Yes Advance Directives: Yes DNR: Yes Level of Care: Skilled Communicable Disease: No Prognosis: Stable Prather Catheter: No Instructions / Follow-Up Instructions / Follow-Up Left 5th metatarsal spiral Fx and L osteoporotic femoral neck Fx from ground level fall s/p bipolar hemiarthroplasty 05/21: - Pain management w/ Tylenol PRN - Vitamin D level 28- increase Vitamin D supplement to 3,000 IU daily CKD stage III-IV: Baseline 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- STABLE Paroxysmal Atrial Fibrillation: Xarelto 15 mg daily Hypercoagulopathy with h/o VTE: SANDRINE/SCDs, Xarelto HTN: Lasix 20 mg daily held preop, BPs remained acceptable and Lasix was not restarted Dementia/Mood Disorder- STABLE: Prozac 40 mg daily, Seroquel 12.5 mg HS Hyperlipidemia: Continue Lopid 600 mg BID OA: Nucynta 100 mg BID BPH: Flomax 0.4 mg HS DVT Prophylaxis: SANDRINE/SCDs, Xarelto Code Status: LEVEL V, DNR Disposition: Discharge to [facility] FOLLOW-UPS: Please follow-up with [facility] provider within 24-48 hours Please follow-up with Orthopedics within 2 weeks Please follow-up/keep all of your subspecialty appointments Current Hospital Diet Patient's current hospital diet: AHA Diet (Heart Healthy) Discharge Diet Recommended Diet: AHA Diet (Heart Healthy) Procedures Procedures Performed: Left Hip Hemiarthroplasty Pending Studies Studies pending at discharge: no Physician Orders On Transfer Special Precautions: Fall precautions Dressing Changes: Routine wound care to surgical site IV Therapy: None Vital Signs: Routine POLST Discussion: without POLST completion Medical Emergencies . Who to Call and When: Medical Emergencies: If at any time you feel your situation is an emergency, please call 911 immediately. . Non-Emergent Contact Non-Emergency issues call your: Primary Care Provider Call Non-Emergent contact if: you have a fever, your pain is not controlled, your pain is worsening, your pain is unusual for you, your pain is concerning you, wound has increased drainage, wound has increased redness, wound has increased pain, you have any medication questions . . "Provider Documentation" section prepared by Jessie Mann. . Inside Steward/Stewardess Recommendations Inside Steward/Stewardess Recommendations: U DISCHARGE INSTRUCTIONS: HIP FRACTURE SELF CARE INSTRUCTIONS: A. You are to ambulate with a walker or crutches for approximately 6 weeks. B. You are WEIGHT BEARING TOLERATE on your operative lower extremity for at least 6 weeks, wear orthotic on left foot when weight bearing C. Wear low heeled shoes with non-slip soles D. Be sure that your floors are free of things that could trip you throw rugs, electrical cords, and small objects. Avoid wet and waxed floors, especially with crutches/walker/cane. E. Try to walk several times a day with rest periods between. F. You may shower 48 hours after surgery and get the incision area wet, but DO NOT soak or submerge incision area in water. (No baths, swimming pools, hot tubs ) G. You may have a large, band-aid like dressing over your incision (Aquacel). This will remain on your incision for 7 days, and then can be removed. You CAN shower with this on. If incision is leaking through the dressing, please call the office . H. Do NOT apply soap or any ointment/lotions directly over incision. I. You may use ice as needed to operative site. SPECIAL CARE INSTRUCTIONS: VERY IMPORTANT TO READ AND REVIEW A. You may be at risk for phlebitis or blood clots. a. Wear surgical stockings (SANDRIEN hose) for 2 weeks after surgery to improve circulation and reduce swelling. b. Take your home medication, Xarelto as directed. This is your blood thinner. c. If you are on Coumadin- you will have daily/weekly blood work to monitor your levels. This will be done by either your family physician/ lamination machine operator (if you are on Coumadin chronically) versus your orthopedic surgeon. Expect a phone call the day of or the day after your blood work is drawn to adjust your dose accordingly. B. There are a few signs you need to watch for after you are home. Call [facility] at [phone] if you experience any of the following: a. If you have a temperature of 101 degrees or higher. b. Sudden increase in pain in your hip not relieved by rest or pain medication. c. Any fluid or drainage from the incision; redness of the incision. d. Shortness of breath or chest pain. B. Please call [facility] at [phone] if you have any questions or concerns about your operation or recovery. C. Call your physician if: a. Temperature is greater than 101 degrees (F). b. Pain is not relieved by prescribed pain medications. c. Increase drainage or redness from incision. d. Unanswered questions or concerns. D. Pain Medication: a. You will be prescribed pain medication upon discharge that should last till your first post-operative appointment. b. If you experience nausea and/or skin rash, discontinue this medication and contact our office for an alternative medication. c. Caution- narcotic pain medication can cause constipation. FOLLOW UP VISIT: Please call [facility] at [phone] to schedule a follow up appointment 10-14 days from the date of your surgery date. Core Measure Problem Core Measures: None
--- NOTE | 2017-05-25 10:44 | Discharge Summary ---
Discharge Summary Date of Service May 25, 2017. (Jessie Mann PA-C) Discharge Summary Admission Date: May 19, 2017 at 14:48 Discharge Date: May 25, 2017 Discharge Disposition: half-way facility Principal Diagnosis: L femoral neck fracture Problems/Secondary Diagnoses: Left 5th metatarsal spiral Fx and L osteoporotic femoral neck Fx from ground level fall s/p bipolar hemiarthroplasty 05/21 CKD stage III-IV Paroxysmal Atrial Fibrillation Hypercoagulopathy with h/o VTE HTN Dementia/Mood Disorder BPH Immunizations: Have You Had Influenza Vaccine: No Influenza Vaccine Date: Jun 11, 2008 History of Tetanus Vaccine?: No History of Pneumococcal: No History of Hepatitis B Vaccine: No Procedures: Immediate Operative Summary Operative Date May 21, 2017. Pre-Operative Diagnosis Left femoral neck fracture Post-Operative Diagnosis Left femoral neck fracture Procedure(s) Performed Left Hip Hemiarthroplasty Surgeon Dr. Whitman/Dr. [place] Labor Supervisor Surgeon(s) Sascha Vital PA-C Estimated Blood Loss 150 ML Findings see dictated op note Specimens A. Left femoral head Complication(s) None Disposition Recovery Room / PACU <Electronically signed by Rufino Parson D.O.> Signed: 05/21/17 1606 Signed: The status of this report is Signed * If report status is Draft, the document has not been finalized by the responsible provider LEFT TIBIA/FIBULA 2 VIEWS ROUTINE, LEFT FOOT MIN 3 VIEWS ROUTINE CLINICAL HISTORY: Left lower leg and left foot pain. Fall. COMPARISON STUDY: None. FINDINGS: Diffuse muscular atrophy. The bones are osteopenic. No fracture dislocation within the tibia or fibula. Spiral fracture the neck of the fifth metacarpal. This is likely acute. There is soft tissue swelling at the fifth MTP joint. The Lisfranc joint is intact. Mild degenerative changes within the toes. Plantar and posterior calcaneal spurs. IMPRESSION: 1. No acute fracture or dislocation within the left tibia or fibula. 2. Spiral fracture at the neck of the fifth metacarpal. This is likely acute given the adjacent soft tissue swelling. Clinical correlation recommended to confirm pain at this location. Electronically signed by: Jenaro Hodge M.D. 05/19/2017 3:08 PM Dictated Date/Time: 05/19/2017 3:00 PM The status of this report is Signed. Draft = Not yet reviewed or approved by Radiologist. Signed = Reviewed and approved by Radiologist. LEFT PELVIS/UNILATERAL HIP 2-3VIEWS CLINICAL HISTORY: L hip pain . Fall. COMPARISON STUDY: None. FINDINGS: There is a left femoral neck fracture with the distal fragment demonstrates mild superior displacement. No dislocation of the left femoral head. The visualized pelvic bones are intact. No fracture or dislocation within the right hip. The bones are osteopenic. IMPRESSION: Left femoral neck fracture. Electronically signed by: Jenaro Hodge M.D. 05/19/2017 2:18 PM Dictated Date/Time: 05/19/2017 2:17 PM The status of this report is Signed. Draft = Not yet reviewed or approved by Radiologist. Signed = Reviewed and approved by Radiologist. HEAD WITHOUT CONTRAST (CT) CLINICAL HISTORY: 87 years-old Male presenting with EVALUATE FOR TRAUMA/INJURY. TECHNIQUE: Multidetector CT imaging of the head was performed without the use of intravenous contrast. IV contrast: None. A dose lowering technique was used consistent with the principles of ALARA (as low as reasonably achievable). COMPARISON: . CT DOSE (mGy.cm): The estimated cumulative dose is 982.[address] cervical spine. FINDINGS: Production Line topogram: Unremarkable. Proportional ventricular and sulcal prominence, likely age-related parenchymal volume loss. Periventricular and subcortical white matter hypoattenuation, nonspecific but likely indicative of chronic small vessel ischemic change. No mass effect or midline shift. No hemorrhage or acute territorial infarct. No extra-axial fluid collection. Paranasal sinuses and mastoid air cells clear. Calvarium intact. IMPRESSION: 1. No acute intracranial pathology. Electronically signed by: Roman Rubio M.D. 05/19/2017 1:33 PM Dictated Date/Time: 05/19/2017 1:31 PM The status of this report is Signed. Draft = Not yet reviewed or approved by Radiologist. Signed = Reviewed and approved by Radiologist. LEFT TIBIA/FIBULA 2 VIEWS ROUTINE, LEFT FOOT MIN 3 VIEWS ROUTINE CLINICAL HISTORY: Left lower leg and left foot pain. Fall. COMPARISON STUDY: None. FINDINGS: Diffuse muscular atrophy. The bones are osteopenic. No fracture dislocation within the tibia or fibula. Spiral fracture the neck of the fifth metacarpal. This is likely acute. There is soft tissue swelling at the fifth MTP joint. The Lisfranc joint is intact. Mild degenerative changes within the toes. Plantar and posterior calcaneal spurs. IMPRESSION: 1. No acute fracture or dislocation within the left tibia or fibula. 2. Spiral fracture at the neck of the fifth metacarpal. This is likely acute given the adjacent soft tissue swelling. Clinical correlation recommended to confirm pain at this location. Electronically signed by: Jenaro Hodge M.D. 05/19/2017 3:08 PM Dictated Date/Time: 05/19/2017 3:00 PM The status of this report is Signed. Draft = Not yet reviewed or approved by Radiologist. Signed = Reviewed and approved by Radiologist. CHEST ONE VIEW PORTABLE CLINICAL HISTORY: EVALUATE FOR TRAUMA/INJURY pain. Trauma. COMPARISON STUDY: 09/26/2016 FINDINGS: The bones soft tissues and hemidiaphragms are normal. The cardiomediastinal silhouette is normal. The lungs are clear. The pulmonary vasculature is normal. IMPRESSION: Negative chest. The above report was generated using voice recognition software. It may contain grammatical, syntax or spelling errors. Electronically signed by: Maximiliano Barcenas M.D. 05/19/2017 1:36 PM Dictated Date/Time: 05/19/2017 1:36 PM The status of this report is Signed. Draft = Not yet reviewed or approved by Radiologist. Signed = Reviewed and approved by Radiologist. CT OF THE CERVICAL SPINE CLINICAL HISTORY: Neck pain status post trauma COMPARISON STUDY: April 27, 2014 CT DOSE: 982.26 mGy.cm TECHNIQUE: CT scan of the cervical spine was performed from the skull base to the thoracic inlet. Images are reviewed in the axial, sagittal, and coronal planes. IV contrast was not administered for this examination. A dose lowering technique was utilized adhering to the principles of ALARA. FINDINGS: The visualized portions of the lung apices reveal no evidence of pneumothorax. The prevertebral soft tissues are normal. No fractures or subluxations are visualized. There are advanced multilevel degenerative changes. Mild anterolisthesis of C3 on C4 is felt to be arthritic. There is mild multilevel spinal stenosis. There is multilevel ankylosis. There is fusion of the posterior elements at the C3 through 5 levels. IMPRESSION: No evidence of acute fracture or traumatic subluxation. Electronically signed by: Axel Kang M.D. 05/19/2017 1:34 PM Dictated Date/Time: 05/19/2017 1:31 PM The status of this report is Signed. Draft = Not yet reviewed or approved by Radiologist. Signed = Reviewed and approved by Radiologist. LEFT FEMUR 2 VIEWS ROUTINE CLINICAL HISTORY: Left hip fracture. COMPARISON: Pelvis and left hip radiographs May 19, 2017 2:12 PM. FINDINGS: A displaced acute left femoral neck fracture is noted. Distal fragment is displaced superiorly. Appearance is similar to study performed earlier today. No additional left femoral fracture is present. There is no left knee joint effusion. Extensive vascular calcification is noted. IMPRESSION: Displaced acute left femoral neck fracture. Electronically signed by: Ky Hutchins M.D. 05/19/2017 9:27 PM Dictated Date/Time: 05/19/2017 9:26 PM The status of this report is Signed. Draft = Not yet reviewed or approved by Radiologist. Signed = Reviewed and approved by Radiologist. LEFT HIP UNILATERAL 2 VIEWS CLINICAL HISTORY: Left hip fracture status post surgery. COMPARISON: 05/19/2017 DISCUSSION: 2 views reveal a bipolar left hip arthroplasty. There is no dislocation. There is a vague longitudinal lucency at the level of the greater trochanter. An incomplete trochanteric fracture cannot be excluded. There is air within the soft tissues consistent with recent surgery. IMPRESSION: 1. Postsurgical changes of a bipolar left hip arthroplasty. 2. No acute fractures 3. Nonspecific irregularity involving the base of the greater trochanter Electronically signed by: Axel Kang M.D. 05/21/2017 4:30 PM Dictated Date/Time: 05/21/2017 4:28 PM The status of this report is Signed. Draft = Not yet reviewed or approved by Radiologist. Signed = Reviewed and approved by Radiologist. Consultations: Orthopedics (Jessie Mann, HONG) Medication Reconciliation New Medications: Quetiapine Fumarate (Quetiapine Fumarate) 25 Mg Tab 12.5 MG PO HS for 30 Days, #15 TAB Changed Medications: Cholecalciferol (Vitamin D3) 1,000 Unit Tab 3 TAB PO DAILY for 30 Days, #90 TAB 5 Refills (Changed from: Cholecalciferol ( Vitamin D-3) 2,000 Unit Tab 2,000 Units PO DAILY) Continued Medications: Acetaminophen (Tylenol) 500 Mg Tab 500 MG PO Q6HR PRN, 0 Refills NEEDED FOR FEVER OR PAIN. MAX 2GM APAP/24 HOURS. Amitriptyline Hcl (Elavil) 10 Mg Tab 10 MG PO HS, TAB Fluoxetine (Prozac) 40 Mg Cap 40 MG PO QAM, CAP Gemfibrozil (Lopid) 600 Mg Tab 600 MG PO BID, TAB Nitroglycerin (Nitrostat) 0.4 Mg/1 Tab Subl 0.4 MG SL PRN PRN for Chest Pain Rivaroxaban (Xarelto) 15 Mg Tab 15 MG PO QAM Tamsulosin HCl (Tamsulosin HCl) 0.4 Mg Cap 0.4 MG PO QAM Tapentadol Hcl (Nucynta Er) 100 Mg Tab 100 MG PO Q12 Discontinued Medications: Furosemide (Furosemide) 20 Mg Tab 20 MG PO QAM Potassium Chloride (Micro-K Ext Rel) 10 Meq Capcr 20 MEQ PO DAILY, CAP Discharge Exam Review of Systems: Constitutional: No fever, No chills, No sweats, No weakness ENT: No hearing loss Respiratory: No cough, No shortness of breath, No hemoptysis Cardiovascular: No chest pain, No edema, No palpitations Abdomen: No pain, No nausea, No vomiting, No diarrhea, No constipation Musculoskeletal: + joint pain, + muscle pain, No swelling, No calf pain Genitourinary - Male: No hematuria, No dysuria Neurologic: No weakness Psychiatric: No depression symptoms, No anxiety Endocrine: No fatigue Hematologic / Lymphatic: No abnormal bleeding/bruising Integumentary: No rash, No itch, No new/changing skin lesions Physical Exam: General Appearance: no apparent distress Eyes: normal inspection, PERRL ENT: hearing grossly normal Neck: supple Respiratory/Chest: lungs clear, no respiratory distress, no accessory muscle use Cardiovascular: regular rate, rhythm Abdomen / GI: normal bowel sounds, non tender, soft Extremities: no calf tenderness, no pedal edema, + pertinent finding (L hip w/ clean dressing in place- ice pack applied ) Neurologic/Psychiatric: alert, normal mood/affect Skin: normal color, warm/dry, no rash (Jessie Mann, PA-C) Hospital Course Admission H&P: This is a 87 yo M with PMHx of atrial fibrillation on xarelto, clotting disorder , hx of venous thromboembolism, hypertension, hyperlipidemia, dementia, BPH, osteoarthritis and osteopenia who presents with new onset left hip fracture from [facility]. The patient was found yesterday by nursing staff in the mens restroom, with a 1 inch laceration on the left side of his neck. He did not remember falling and denies any trauma to the head. When asked why he didn' t use his own room restroom he states he did not remember it was there. The patient currently rates his pain as a 5-6 out of 10, and states that he feels fairly well. The patient denies any numbness or tingling to his feet. During my interview with the patient he asked me who I was 3 different times. Here in the ER x-ray confirms left femoral neck fracture. Other labs are WNL. EKG is in NSR. Physical Exam Vital Signs Date Time Temp Pulse Resp B/P (MAP) Pulse Ox O2 Delivery O2 Flow Rate FiO2 05/19/17 13:52 81 147/78 96 Room Air 05/19/17 12:23 83 20 125/74 95 Room Air 05/19/17 12:17 94 Room Air 05/19/17 12:17 Room Air 05/19/17 12:09 37.2 86 17 125/78 94 Room Air 05/19/17 11:56 87 General: awake, alert, no apparent distress Head: Normocephalic, atraumatic, + left lateral neck laceration ENT: PERRL, EOMI, no pharyngeal exudate, mucous membranes moist Chest: Clear to auscultation, on room air, no adventitious breath sounds Cardiac: Regular rhythm, + tachycardic, no murmur, no JVD, normal peripheral pulses, good capillary refill Abdominal: NABS x 4 quadrants, soft, nontender to palpation, no rebound, guarding or tenderness Extremities: L leg flexed and internally rotated, + ecchymosis over the dorsal aspect of the left foot. Right LLE normal inspection, no peripheral edema or erythema, calfs nontender to palpation Psych: Normal mood and affect Neuro: Disoriented 3, speech is clear, no peripheral sensory deficits Hospital Course: Left 5th metatarsal spiral Fx and L osteoporotic femoral neck Fx from ground level fall s/p bipolar hemiarthroplasty 05/21: - Pain management w/ Tylenol PRN - - Vitamin D level 28- increase Vitamin D supplement to 3,000 IU daily CKD stage III-IV: Baseline 1.9- STABLE Paroxysmal Atrial Fibrillation: Xarelto 15 mg daily Hypercoagulopathy with h/o VTE: SANDRINE/SCDs, Xarelto HTN: Lasix 20 mg daily held preop, BPs remained acceptable and Lasix was not restarted Dementia/Mood Disorder- STABLE: Prozac 40 mg daily, Seroquel 12.5 mg HS Hyperlipidemia: Continue Lopid 600 mg BID OA: Nucynta 100 mg BID BPH: Flomax 0.4 mg HS DVT Prophylaxis: SANDRINE/SCDs, Xarelto Code Status: LEVEL V, DNR Disposition: Discharge to [facility] Total Time Spent: Greater than 30 minutes This includes examination of the patient, discharge planning, medication reconciliation, and communication with other providers. (Jessie Mann, PA-C) i personally examined pt and verified all edouard points jennifer POSADAS feeling OK. no complaints. for [facility] today. vitals noted nad breathing unlabored. no pain on ROM of either leg, somewhat limited at hip flexion L sided but no pain no crepitis hip fx - stable for SNF mild orthostasis - anticipate ongoing improvement - stable for SNF, supportive care especially when transitioning bed to chair, chair to stand, etc otherwise as above (Hamzah Gonzalez, D.O.) Discharge Instructions Please refer to the electronic Patient Visit Report (Discharge Instructions) for additional information. (Jessie Mann, BELÉN-C) Follow-Up Please follow-up with [facility] provider within 24-48 hours Please follow-up with Orthopedics within 2 weeks Please follow-up/keep all of your subspecialty appointments (Jessie Mann, SANDRAC) Additional Copies To Cynthia Leyva
[2017-05-25] MEDS ORDERED: CHOL1000 PO (11:49)
--- NOTE | 2017-05-25 13:49 | Orthopedic Progress Note ---
Orthopedic Progress Note Date of Service May 25, 2017. Subjective Post OP Day: 4 Reports: feeling well, Denies: complaints Additional Notes: Primary team concerned about leg position and length, I personally saw the patient at bedside, comfortable, pain well controlled, only with complaints with activity. No acute issues overnight. Patient to be discharged today. Objective LLE NVSI +EHL/FHL/TA/GS SILT grossly, +2DP pulse, compartments soft NT, leg lengths equal, dressing c/d/i Date Time Temp Pulse Resp B/P (MAP) Pulse Ox O2 Delivery O2 Flow Rate FiO2 05/25/17 06:51 36.4 77 18 121/75 (90) 97 Room Air 05/25/17 00:30 Room Air 05/24/17 23:15 36.6 85 16 119/67 (84) 98 Room Air 05/24/17 17:12 36.7 99 20 158/79 (105) 11 Nasal Cannula 2.0 05/24/17 16:30 100 Room Air 05/24/17 15:20 36.3 85 16 111/68 (82) 100 Room Air Laboratory Results 24 Hours: Test 05/25/17 05:30 Hematocrit 24.3 % Hemoglobin 8.3 g/dL Assessment & Plan Assessment: Left hip femoral neck fracture Plan: 87 yo male POD #4 s/p Left Hip Hemiarthroplasty, left foot 5th MT neck fx -am labs -Hbg today 8.3 -DVT PPX xarelto -Pain control - Tramadol, would advise against narcotic medications -WBAT LLE -PT/OT -Abduction pillow when in bed -Posterior hip precautions -Silverlon dressing intact - keep in place x 7 days from date of surgery unless saturated. -Post op shoe ordred for left foot MT neck fracture. Patient may weight bear as tolerates when wearing shoe. -I personally reviewed the XR of the left hip taken today 05/25/17, well aligned well fixed cemented left hip hemiarthroplasty. No fracture, no dislocation. The patient is stable per orthopedics, we will sign off, call with questions, recs left in documents.
--- NOTE | 2017-05-25 14:22 | DIAGNOSTIC IMAGING REPORT ---
LEFT HIP UNILATERAL 2 VIEWS CLINICAL HISTORY: Left hip pain. COMPARISON: 05/21/2017 DISCUSSION: There is a bipolar left hip arthroplasty. No acute fractures are visualized. No dislocations are evident. There is no evidence for soft tissue swelling. There is greater trochanteric spurring. IMPRESSION: 1. No acute fractures or dislocations identified. Electronically signed by: Axel Kang M.D. 05/25/2017 2:21 PM Dictated Date/Time: 05/25/2017 2:20 PM
[2017-05-25 14:52] VITALS: BP 121/75; PULSE 77; TEMP 36.4; O2SAT 97
== END 2017-05-25 15:00 | DRG 470 ==
LOC: EDBD 11:43 → C.EDB 11:44 → C.2T 14:48 → ENRESERV 15:46 → C.MSW 05-20 13:57
PROVIDERS: ADMIT Hospitalist
PROC: 0SRS0J9 Replacement of Left Hip Joint, Femoral Surface with Synthetic Substitute, Cemented, Open Approach (ICD-10-PCS; principal; 2017-05-21 12:00)
DX: M80.852A Other osteoporosis with current pathological fracture, left femur, initial encounter for fracture (principal); F05 Delirium due to known physiological condition; F03.91 Unspecified dementia, unspecified severity, with behavioral disturbance; D68.59 Other primary thrombophilia; N18.4 Chronic kidney disease, stage 4 (severe); S92.352A Displaced fracture of fifth metatarsal bone, left foot, initial encounter for closed fracture; W18.30XA Fall on same level, unspecified, initial encounter; Y92.121 Bathroom in nursing home as the place of occurrence of the external cause; I48.0 Paroxysmal atrial fibrillation; I12.9 Hypertensive chronic kidney disease with stage 1 through stage 4 chronic kidney disease, or unspecified chronic kidney disease; E78.5 Hyperlipidemia, unspecified; D64.9 Anemia, unspecified; R13.10 Dysphagia, unspecified; M85.80 Other specified disorders of bone density and structure, unspecified site; N40.0 Benign prostatic hyperplasia without lower urinary tract symptoms; M19.90 Unspecified osteoarthritis, unspecified site; F39 Unspecified mood [affective] disorder; Z86.718 Personal history of other venous thrombosis and embolism; Z79.01 Long term (current) use of anticoagulants; Z79.899 Other long term (current) drug therapy; R41.82 Altered mental status, unspecified

== ENCOUNTER → 2017-06-02 | Outpatient (CLI) | payer BC, OTHER ==
[~2017-06-02] MED LIST changes: -BISA1SUP4 RE; +CHOL1000 PO; -CHOL200027 PO; -LSX20 PO; -MOMLX PO; -POTA10CA28 PO; -PRNJ PO; +SRQ25 PO; +TAPE1TAB10 PO; -TAPE50TA5 PO
[2017-06-02 08:06] LABS: BASO % 0.4 %; BASO ABS # 0.02 K/uL (0-0.2); EOS % 4.7 %; HEMATOCRIT 26.9 % (42-52); IG% 0.5 %; LYMPH % 20.4 %; LYMPH ABS # 1.12 K/uL (1.2-3.4); MEAN CELL VOLUME 93.1 fL (80-100); MEAN CORPUSCULAR HEMOGLOBIN 30.4 pg (25-34); MEAN CORPUSCULAR HGB CONC 32.7 g/dl (32-36); MEAN PLATELET VOLUME 9.2 fL (7.4-10.4); MONO % 12.2 %; NEUT % 61.8 %; PLATELET COUNT 500 K/uL (130-400); RED BLOOD COUNT 2.89 M/uL (4.7-6.1); WHITE BLOOD COUNT 5.48 K/uL (4.8-10.8)
[2017-06-02 08:21] LABS: BLOOD UREA NITROGEN 30 mg/dl (7-18); BUN/CREATININE RATIO 19.7 (10-20); CALCIUM 9.5 mg/dl (8.5-10.1); CARBON DIOXIDE 20 mmol/L (21-32); CHLORIDE 106 mmol/L (98-107); GLUCOSE 120 mg/dl (70-99); POTASSIUM 3.8 mmol/L (3.5-5.1); SODIUM 137 mmol/L (136-145)
[2017-06-02 08:28] LABS: COMPLETE YES
== END ==
LOC: C.LABCC 07:42
PROVIDERS: ATTEND Internal Medicine
DX: D64.9 Anemia, unspecified (principal)

== ENCOUNTER → 2017-06-04 | Outpatient (CLI) | payer BC, OTHER ==
[2017-06-04 09:02] LABS: BASO % 0.4 %; BASO ABS # 0.02 K/uL (0-0.2); EOS % 5.4 %; HEMATOCRIT 28.3 % (42-52); IG% 0.4 %; LYMPH % 24.3 %; LYMPH ABS # 1.22 K/uL (1.2-3.4); MEAN CELL VOLUME 93.7 fL (80-100); MEAN CORPUSCULAR HEMOGLOBIN 28.8 pg (25-34); MEAN CORPUSCULAR HGB CONC 30.7 g/dl (32-36); MONO % 12.5 %; PLATELET COUNT 501 K/uL (130-400); RED BLOOD COUNT 3.02 M/uL (4.7-6.1); WHITE BLOOD COUNT 5.03 K/uL (4.8-10.8)
[2017-06-04 09:15] LABS: FERRITIN 321.8 ng/ml (8.0-388.0)
[2017-06-04 09:26] LABS: COMPLETE YES; ECHINOCYTES 1+
--- NOTE | 2017-06-10 06:10 | CODING QUERY MEDICAL NECESSITY ---
SUPPORTING DIAGNOSIS NEEDED Dr. Wheeler, A supporting diagnosis is required for the test/procedure performed on this patient in order for us to be reimbursed by the patient's insurance. Please provide a supporting diagnosis for the following test/procedure listed below next to the test name along with your signature. *If there is no additional diagnosis for this patient that would support the following test/procedure please document that below next to the test/procedure. Test(s)/Procedure(s) that require a supporting diagnosis: * ([id number]) B12 VITAMIN LEVEL DIAGNOSIS: * ([id number]) FOLATE LEVEL DIAGNOSIS: DATE OF SERVICE: 06/04/17 Provider Signature: Date: Thank you Jair Carter [facility] Once completed, please kindly fax back to [phone] For questions please call [phone]
== END ==
LOC: C.LABCC 08:45
PROVIDERS: ATTEND Internal Medicine
DX: D64.9 Anemia, unspecified (principal)

== ENCOUNTER → 2017-06-12 | Outpatient (CLI) | payer BC, OTHER ==
[2017-06-12 08:11] LABS: BASO % 0.6 %; BASO ABS # 0.03 K/uL (0-0.2); COMPLETE YES; EOS % 8.6 %; HEMATOCRIT 27.3 % (42-52); IG% 0.4 %; LYMPH % 25.5 %; LYMPH ABS # 1.24 K/uL (1.2-3.4); MEAN CELL VOLUME 92.2 fL (80-100); MEAN CORPUSCULAR HEMOGLOBIN 30.4 pg (25-34); MEAN PLATELET VOLUME 9.5 fL (7.4-10.4); MONO % 12.8 %; NEUT % 52.1 %; PLATELET COUNT 346 K/uL (130-400); RED BLOOD COUNT 2.96 M/uL (4.7-6.1); WHITE BLOOD COUNT 4.86 K/uL (4.8-10.8)
== END ==
LOC: C.LABCC 07:46
PROVIDERS: ATTEND Internal Medicine
DX: D64.9 Anemia, unspecified (principal)

== ENCOUNTER → 2018-04-16 | Outpatient (CLI) | payer BC, OTHER ==
[~2018-04-16] MED LIST changes: -GEMF600T3 PO; +GEMF600T5 PO
[2018-04-16 08:25] LABS: BASO % 0.8 %; BASO ABS # 0.04 K/uL (0-0.2); EOS % 6.3 %; HEMATOCRIT 32.8 % (42-52); HEMOGLOBIN 10.8 g/dL (14.0-18.0); IG# 0.01 K/uL (0.00-0.02); LYMPH % 34.3 %; LYMPH ABS # 1.63 K/uL (1.2-3.4); MEAN CELL VOLUME 92.9 fL (80-100); MEAN CORPUSCULAR HEMOGLOBIN 30.6 pg (25-34); MEAN CORPUSCULAR HGB CONC 32.9 g/dl (32-36); MEAN PLATELET VOLUME 10.2 fL (7.4-10.4); MONO % 12.6 %; NEUT % 45.8 %; NEUT ABS # 2.17 K/uL (1.4-6.5); PLATELET COUNT 291 K/uL (130-400); RED CELL DISTRIBUTION WIDTH CV 13.4 % (11.5-14.5); RED CELL DISTRIBUTION WIDTH SD 45.3 fL (36.4-46.3); WHITE BLOOD COUNT 4.75 K/uL (4.8-10.8)
[2018-04-16 08:34] LABS: BLOOD UREA NITROGEN 45 mg/dl (7-18); CALCIUM 9.3 mg/dl (8.5-10.1); CARBON DIOXIDE 23 mmol/L (21-32); CREATININE 1.69 mg/dl (0.60-1.40); GLUCOSE 105 mg/dl (70-99); POTASSIUM 4.1 mmol/L (3.5-5.1); SODIUM 137 mmol/L (136-145)
== END ==
LOC: C.LABCC 08:14
PROVIDERS: ATTEND Internal Medicine
DX: I48.91 Unspecified atrial fibrillation (principal); N18.9 Chronic kidney disease, unspecified